=== PATIENT | female | born 1950 | race Caucasian/White ===

== ENCOUNTER 2018-04-03 15:47 | Emergency (ER) | payer MEDICARE, OTHER ==
--- NOTE | 2018-04-03 17:32 | ED ---
Recheck HPI - General Chief Complaint: Recheck/Abnormal Lab/Rx Stated Complaint: High BP Time Seen by Provider: 04/03/18 17:04 Source: patient, family, RN notes reviewed, old records reviewed Mode of arrival: wheelchair Limitations: no limitations - History of Present Illness Initial Comments: This is a 67-year-old female the ER for evaluation. Patient has history of high blood pressure with blood pressure medication that she takes, patient's been taking her blood pressure medication as directed but and I will mild headache today and had some abnormal blood pressure readings at home. Patient comes ER for evaluation. Patient herself denies any complaints no headache no chest pain or shortness of breath no abdominal pain. MD Complaint: abnormal lab (Elevated blood pressure) -: hour(s) Symptoms Since Prior Visit: no new symptoms Associated Symptoms: none - Related Data Home Medications Medication Instructions Recorded Confirmed Amantadine HCl [Symmetrel] 100 mg PO TID 04/03/18 04/03/18 Atorvastatin [Lipitor] 20 mg PO DAILY 04/03/18 04/03/18 Carbidopa-Levodopa 25-100 mg 3 tab PO QID 04/03/18 [Sinemet 25-100] Docusate [Colace] 100 mg PO DAILY PRN 04/03/18 04/03/18 Losartan/Hydrochlorothiazide 1 tab PO DAILY 04/03/18 04/03/18 [Losartan-Hctz 100-25 mg Tab] Multivit-Min/Iron/Folic/Lutein 1 tab PO DAILY 04/03/18 04/03/18 [Centrum Silver Women Tablet] Allergies Allergy/AdvReac Type Severity Reaction Status Date / Time No Known Allergies Allergy Verified 04/03/18 17:32 Review of Systems ROS Statement: Those systems with pertinent positive or pertinent negative responses have been documented in the HPI. ROS Other: All systems not noted in ROS Statement are negative. Past Medical History Past Medical History: Hyperlipidemia, Hypertension History of Any Multi-Drug Resistant Organisms: None Reported Past Surgical History: Section, Orthopedic Surgery Additional Past Surgical History / Comment(s): rt foot Past Psychological History: No Psychological Hx Reported Smoking Status: Never smoker Past Alcohol Use History: None Reported Past Drug Use History: None Reported General Exam Limitations: no limitations General appearance: alert, in no apparent distress Head exam: Present: atraumatic, normocephalic, normal inspection Eye exam: Present: normal appearance, PERRL, EOMI. Absent: scleral icterus, conjunctival injection, periorbital swelling ENT exam: Present: normal exam, mucous membranes moist Neck exam: Present: normal inspection. Absent: tenderness, meningismus, lymphadenopathy Respiratory exam: Present: normal lung sounds bilaterally. Absent: respiratory distress, wheezes, rales, rhonchi, stridor Cardiovascular Exam: Present: regular rate, normal rhythm, normal heart sounds. Absent: systolic murmur, diastolic murmur, rubs, gallop, clicks GI/Abdominal exam: Present: soft, normal bowel sounds. Absent: distended, tenderness, guarding, rebound, rigid Extremities exam: Present: normal inspection, full ROM, normal capillary refill. Absent: tenderness, pedal edema, joint swelling, calf tenderness Back exam: Present: normal inspection Neurological exam: Present: alert, oriented X3, CN II-XII intact Psychiatric exam: Present: normal affect, normal mood Skin exam: Present: warm, dry, intact, normal color. Absent: rash Course Vital Signs 04/03/18 04/03/18 16:01 17:40 Temperature 98.7 F Pulse Rate 88 86 Respiratory 20 16 Rate Blood Pressure 136/75 148/74 O2 Sat by Pulse 98 97 Oximetry - Reevaluation(s) Reevaluation #1: 04/03/18 20:15 Medical record is reviewed Reevaluation #2: 04/03/18 20:15 Spoke with patient's family at length given advice regarding blood pressure control and evaluation. Questions are answered Medical Decision Making - Medical Decision Making 67 female the ER for evaluation of elevated blood pressure, patient's blood pressure is normal throughout ER stay. Patient is occasional headaches but CT negative, labwork is normal patient will discharge home - Lab Data Result diagrams: 04/03/18 19:18 04/03/18 19:18 Lab Results 04/03/18 04/03/18 04/03/18 Range/Units 19:18 19:18 19:18 WBC 7.4 (3.8-10.6) k/uL RBC 4.74 (3.80-5.40) m/uL Hgb 15.8 (11.4-16.0) gm/dL Hct 49.3 H (34.0-46.0) % MCV 104.0 H (80.0-100.0) fL MCH 33.3 (25.0-35.0) pg MCHC 32.0 (31.0-37.0) g/dL RDW 13.4 (11.5-15.5) % Plt Count 334 (150-450) k/uL Neutrophils % 56 % Lymphocytes % 32 % Monocytes % 7 % Eosinophils % 2 % Basophils % 1 % Neutrophils # 4.2 (1.3-7.7) k/uL Lymphocytes # 2.4 (1.0-4.8) k/uL Monocytes # 0.5 (0-1.0) k/uL Eosinophils # 0.1 (0-0.7) k/uL Basophils # 0.1 (0-0.2) k/uL Macrocytosis Slight Sodium 138 (137-145) mmol/L Potassium 3.9 (3.5-5.1) mmol/L Chloride 102 (98-107) mmol/L Carbon Dioxide 27 (22-30) mmol/L Anion Gap 9 mmol/L BUN 17 (7-17) mg/dL Creatinine 0.66 (0.52-1.04) mg/dL Est GFR (CKD-EPI)AfAm >90 (>60 ml/min/1.73 sqM) Est GFR (CKD-EPI)NonAf >90 (>60 ml/min/1.73 sqM) Glucose 98 (74-99) mg/dL Calcium 10.3 H (8.4-10.2) mg/dL Phosphorus 4.4 (2.5-4.5) mg/dL Magnesium 2.3 (1.6-2.3) mg/dL Total Bilirubin 0.4 (0.2-1.3) mg/dL AST 30 (14-36) U/L ALT 21 (9-52) U/L Alkaline Phosphatase 74 (38-126) U/L Total Creatine Kinase 88 (30-135) U/L CK-MB (CK-2) 0.7 (0.0-2.4) ng/mL CK-MB (CK-2) Rel Index 0.8 Troponin I <0.012 (0.000-0.034) ng/mL Total Protein 8.2 (6.3-8.2) g/dL Albumin 4.3 (3.5-5.0) g/dL - Radiology Data Radiology results: report reviewed (CT brain is negative for acute disease), image reviewed Disposition Clinical Impression: Hypertension Disposition: HOME SELF-CARE Condition: Good Instructions: Hypertension (ED) Is patient prescribed a controlled substance at d/c from ED?: No Referrals: Juanita Allen MD [Primary Care Provider] - 1-2 days
[2018-04-03 17:40] VITALS: RESP 16
[2018-04-03 19:42] LABS: Basophils # (A) 0.1 k/uL (0-0.2); Basophils % (A) 1 %; Eosinophils # (A) 0.1 k/uL (0-0.7); Eosinophils % (A) 2 %; HCT 49.3 % (34.0-46.0); HGB 15.8 gm/dL (11.4-16.0); Lymphocytes # (A) 2.4 k/uL (1.0-4.8); Lymphocytes % (A) 32 %; MCH 33.3 pg (25.0-35.0); Macrocytosis Slight; Mean Platelet Volume 6.4; Monocytes # (A) 0.5 k/uL (0-1.0); Monocytes % (A) 7 %; Neutrophils # (A) 4.2 k/uL (1.3-7.7); Neutrophils % (A) 56 %; Platelet Count 334 k/uL (150-450); RBC 4.74 m/uL (3.80-5.40); RDW 13.4 % (11.5-15.5); WBC 7.4 k/uL (3.8-10.6)
[2018-04-03 19:54] LABS: Creatine Kinase 88 U/L (30-135)
[2018-04-03 19:56] LABS: ALT 21 U/L (9-52); AST 30 U/L (14-36); Albumin 4.3 g/dL (3.5-5.0); Alkaline Phosphatase 74 U/L (38-126); Anion Gap 9 mmol/L; Blood Urea Nitrogen 17 mg/dL (7-17); Calcium 10.3 mg/dL (8.4-10.2); Carbon Dioxide 27 mmol/L (22-30); Chloride 102 mmol/L (98-107); Glucose 98 mg/dL (74-99); Magnesium 2.3 mg/dL (1.6-2.3); Phosphorus 4.4 mg/dL (2.5-4.5); Potassium 3.9 mmol/L (3.5-5.1); Sodium 138 mmol/L (137-145); Total Bilirubin 0.4 mg/dL (0.2-1.3); Total Protein 8.2 g/dL (6.3-8.2)
[2018-04-03 20:06] LABS: Creatine Kinase MB 0.7 ng/mL (0.0-2.4); Troponin I <0.012 ng/mL (0.000-0.034)
--- NOTE | 2018-04-03 20:17 | CT ---
EXAMINATION TYPE: CT brain wo con DATE OF EXAM: 04/03/2018 COMPARISON: None HISTORY: Hypertension and headache. CT DLP: 980.3 mGycm Automated exposure control for dose reduction was used. FINDINGS: Ventricles have normal size. There is no mass effect nor midline shift. There is no sign of intracran ial hemorrhage. The calvarium is intact. There is symmetric thalamic calcification. IMPRESSION: NO ACUTE INTRACRANIAL ABNORMALITY.
[2018-04-03 20:50] VITALS: BP 112/82; PULSE 84; TEMP 98.5
== END 2018-04-03 20:50 | disposition home or self-care (01) ==
LOC: EC 15:47
DX: I10 Essential (primary) hypertension (principal); R79.9 Abnormal finding of blood chemistry, unspecified; R51 Headache; E78.5 Hyperlipidemia, unspecified; Z79.899 Other long term (current) drug therapy
CPT/HCPCS: 36415; 70450; 80053; 82550; 82553; 83735; 84100; 84484; 85025; 99284

== ENCOUNTER → 2018-04-30 | Outpatient (CLI) | payer MEDICARE ==
--- NOTE | 2018-04-30 16:35 | XR ---
Right knee HISTORY: Right knee pain 3 views of the right knee Slight lateral subluxation at the knee joint is present, there is tricompartmental marginal spurring, joint space loss is greatest in the medial and patellofemoral compartments with subchondral sclerosi s medially. Suprapatellar increased density is compatible joint effusion. Question some chondrocalcin osis. IMPRESSION: Consider crystal deposition arthropathy, osteoarthritis.
== END | disposition home or self-care (01) ==
LOC: RADXRMAIN 15:31
PROVIDERS: ATTEND Internal Medicine
DX: M25.561 Pain in right knee (principal)

== ENCOUNTER → 2018-05-06 | Outpatient (CLI) | payer MEDICARE ==
--- NOTE | 2018-05-06 12:20 | FL ---
Modified barium swallow. HISTORY: Dysphagia. Modified barium swallow was performed with the department of speech pathology. The patient was prese nted with various consistencies of barium. There is no evidence for aspiration or penetration. Full report is to follow from the department of speech pathology. Impression: Normal study.
== END | disposition home or self-care (01) ==
LOC: RADFLMAIN 11:26
PROVIDERS: ATTEND Internal Medicine
DX: R13.10 Dysphagia, unspecified (principal); G20 Parkinson's disease; G23.1 Progressive supranuclear ophthalmoplegia [Steele-Richardson-Olszewski]
CPT/HCPCS: 74230

== ENCOUNTER 2018-06-07 07:53 | Emergency (ER) | payer MEDICARE ==
--- NOTE | 2018-06-07 09:14 | ED ---
General Adult HPI - General Chief complaint: Fall Stated complaint: Fell/head injury Source: patient, family Mode of arrival: wheelchair Limitations: no limitations - History of Present Illness Initial comments: Dictation was produced using [employer] dictation software. please excuse any grammatical, word or spelling errors. Chief Complaint: 67-year-old female presents with fall History of Present Illness: Patient is a 67-year-old female presents after fall. Patient has a past medical history of supranuclear palsy. She was diagnosed with this several months ago. Patient allegedly has episodes where if she turns abruptly she falls due to her neurologic disease. Patient states she fell today. She did fall and hit her head on the right parietal area. Medications were reviewed. Patient does not have any ambulatory orders for blood thinners. Patient denies any neurologic deficits. Family is allegedly working on mother being placed in a nursing facility versus the living facility. The ROS documented in this emergency department record has been reviewed and confirmed by me. Those systems with pertinent positive or negative responses have been documented in the HPI. All other systems are other negative and/or noncontributory. - Related Data Home Medications Medication Instructions Recorded Confirmed Amantadine HCl [Symmetrel] 100 mg PO DAILY 04/03/18 06/07/18 Atorvastatin [Lipitor] 20 mg PO DAILY 04/03/18 06/07/18 Carbidopa-Levodopa 25-100 mg 4 tab PO TID 04/03/18 06/07/18 [Sinemet 25-100] Losartan/Hydrochlorothiazide 1 tab PO DAILY 04/03/18 06/07/18 [Losartan-Hctz 100-25 mg Tab] Multivit-Min/Iron/Folic/Lutein 1 tab PO DAILY 04/03/18 06/07/18 [Centrum Silver Women Tablet] Aspirin EC [Ecotrin Low Dose] 81 mg PO DAILY 04/15/18 06/07/18 Meclizine [Antivert] 12.5 mg PO TID PRN 06/07/18 06/07/18 Nystatin 100,000 Unit/ml Susp 5 ml PO QID 06/07/18 06/07/18 [Mycostatin Oral Susp] Polyethylene Glycol 3350 [Miralax] 17 gm PO DAILY 06/07/18 06/07/18 Sennosides [Senna] 8.6 mg PO DAILY PRN 06/07/18 06/07/18 Allergies Allergy/AdvReac Type Severity Reaction Status Date / Time No Known Allergies Allergy Verified 06/07/18 10:34 Review of Systems ROS Statement: Those systems with pertinent positive or pertinent negative responses have been documented in the HPI. ROS Other: All systems not noted in ROS Statement are negative. Past Medical History Past Medical History: Hyperlipidemia, Hypertension History of Any Multi-Drug Resistant Organisms: None Reported Past Surgical History: Section, Orthopedic Surgery Additional Past Surgical History / Comment(s): rt foot Past Psychological History: No Psychological Hx Reported Smoking Status: Never smoker Past Alcohol Use History: None Reported Past Drug Use History: None Reported General Exam - General Exam Comments Initial Comments: PHYSICAL EXAM: General Impression: Alert and oriented x3, not in acute distress HEENT: Normocephalic atraumatic, extra-ocular movements intact, pupils equal and reactive to light bilaterally, mucous membranes moist. Cardiovascular: Heart regular rate and rhythm, S1&S2 audible, no murmurs, rubs or gallops Chest: Lungs clear to auscultation bilaterally, no rhonchi, no wheeze, no rales Abdomen: Bowel sounds present, abdomen soft, non-tender, non-distended, no organomegaly Musculoskeletal: Pulses present and equal in all extremities, no peripheral edema Motor: Power 5/5 bilaterally, no focal deficits noted Neurological: CN II-XII grossly intact, no focal motor or sensory deficits noted Skin: Intact with no visualized rashes Psych: Normal affect and mood Limitations: no limitations Course Vital Signs 06/07/18 07:57 Temperature 98.2 F Pulse Rate 103 H Respiratory 20 Rate Blood Pressure 155/83 O2 Sat by Pulse 98 Oximetry Medical Decision Making - Medical Decision Making ED course: 67-year-old female presents after fall. She has a past medical history of supranuclear palsy where she will have episodes of falling after abrupt head movements. Vital signs upon arrival shows heart rate of 103, rest of vital signs within acceptable limits.Laboratory evaluation obtained. CBC, coag panel, metabolic panel unremarkable. Head and C-spine was obtained. CT was read as possible fullness within the sella. No other intracranial injuries noted. CT C-spine is unremarkable. Discussed patient case with Dr. Conn on- call for neurology recommend patient be transferred for neurosurgical evaluation. There is some concern that this radiologic finding represents traumatic. Patient to be transferred via ambulance to [facility]. - Lab Data Result diagrams: 06/07/18 09:24 06/07/18 09:24 Lab Results 06/07/18 06/07/18 06/07/18 Range/Units 09:23 09:24 09:24 WBC 6.0 (3.8-10.6) k/uL RBC 4.81 (3.80-5.40) m/uL Hgb 16.1 H (11.4-16.0) gm/dL Hct 48.9 H (34.0-46.0) % MCV 101.5 H (80.0-100.0) fL MCH 33.4 (25.0-35.0) pg MCHC 32.9 (31.0-37.0) g/dL RDW 13.0 (11.5-15.5) % Plt Count 252 (150-450) k/uL Neutrophils % 61 % Lymphocytes % 20 % Monocytes % 12 % Eosinophils % 2 % Basophils % 1 % Neutrophils # 3.7 (1.3-7.7) k/uL Lymphocytes # 1.2 (1.0-4.8) k/uL Monocytes # 0.7 (0-1.0) k/uL Eosinophils # 0.1 (0-0.7) k/uL Basophils # 0.1 (0-0.2) k/uL Macrocytosis Slight PT 10.0 (9.0-12.0) sec INR 0.9 (<1.2) Sodium 140 (137-145) mmol/L Potassium 3.9 (3.5-5.1) mmol/L Chloride 101 (98-107) mmol/L Carbon Dioxide 30 (22-30) mmol/L Anion Gap 9 mmol/L BUN 12 (7-17) mg/dL Creatinine 0.72 (0.52-1.04) mg/dL Est GFR (CKD-EPI)AfAm >90 (>60 ml/min/1.73 sqM) Est GFR (CKD-EPI)NonAf 87 (>60 ml/min/1.73 sqM) Glucose 93 (74-99) mg/dL Calcium 9.8 (8.4-10.2) mg/dL Disposition Clinical Impression: Fall Disposition: OTHER INSTITUTION NOT DEFINED Condition: Critical Referrals: Juanita Allen MD [Primary Care Provider] - 1-2 days Time of Disposition: 11:49 - Out of Hospital Transfer - Req. Specs Out of Hospital Transfer - Requested Specifics: Other Emergency Center ([facility] for neurosurgery evaluation)
[2018-06-07 09:38] LABS: Basophils # (A) 0.1 k/uL (0-0.2); Basophils % (A) 1 %; Eosinophils # (A) 0.1 k/uL (0-0.7); Eosinophils % (A) 2 %; HCT 48.9 % (34.0-46.0); HGB 16.1 gm/dL (11.4-16.0); Lymphocytes # (A) 1.2 k/uL (1.0-4.8); Lymphocytes % (A) 20 %; MCH 33.4 pg (25.0-35.0); MCHC 32.9 g/dL (31.0-37.0); MCV 101.5 fL (80.0-100.0); Macrocytosis Slight; Mean Platelet Volume 6.2; Monocytes # (A) 0.7 k/uL (0-1.0); Monocytes % (A) 12 %; Neutrophils # (A) 3.7 k/uL (1.3-7.7); Neutrophils % (A) 61 %; Platelet Count 252 k/uL (150-450); RBC 4.81 m/uL (3.80-5.40)
[2018-06-07 09:46] LABS: Anion Gap 9 mmol/L; Blood Urea Nitrogen 12 mg/dL (7-17); Calcium 9.8 mg/dL (8.4-10.2); Carbon Dioxide 30 mmol/L (22-30); Chloride 101 mmol/L (98-107); Glucose 93 mg/dL (74-99); Potassium 3.9 mmol/L (3.5-5.1); Sodium 140 mmol/L (137-145)
--- NOTE | 2018-06-07 10:14 | CT ---
EXAMINATION TYPE: CT brain val cannon con DATE OF EXAM: 06/07/2018 COMPARISON: 04/15/2018 HISTORY: Fall last evening struck back of head CT DLP: 1206.9 mGycm, Automated exposure control for dose reduction was used. CONTRAST: Patient injected with 0 mL of Isovue 300. CT of the brain is performed utilizing 3 mm thick sections through the posterior fossa and 3 mm thick sections through the remaining calvarium. Study is performed within 24 hours of arrival to the hospital. No abnormal hyperdensity is present to suggest an acute intracranial hemorrhage. No mass lesion is evident. Physiologic basal ganglion calcification is present. No acute infarcts are evident. Ventricles and sulci are appropriate for the patient age. No acute fractures are evident. There is some fullness of the sella. The posterior wall is not well visualized. Consider dedicated MR I of the pituitary the patient is stable for additional evaluation of this region. No obvious pituita ry mass is evident based on these images. Paranasal sinuses and mastoid air cells within the [id number] are clear. IMPRESSIONS: 1. No acute intracranial process. 2. Possible fullness within the sella. MRI with contrast can be performed when the patient is stable for additional evaluation. CT cervical spine. COMPARISON: None CT of the cervical spine is performed in the axial plane at 2 mm thick sections. Reconstructed image s in the coronal, and sagittal plane are reviewed on the computer. No acute fractures are evident. Vertebral body alignment is normal. Disc space narrowing is present, most notably C3-4 C6-7. Vertebral body heights are preserved. No spinal canal stenosis is evident. Spondylosis and minimal endplate spurring is present most notabl y C6-7 no AP spinal canal stenosis present. Mild left foraminal narrowing from uncovertebral joint hypertrophy at C6-7 is present. Bilateral unco vertebral joint hypertrophy is present C5-6 contributing to foraminal narrowing slightly greater on t he right. IMPRESSIONS: 1. Degenerative disc changes cervical spine. 2. No acute osseous abnormality. 3. Uncovertebral joint hypertrophy is lower cervical spine contributing to some foraminal narrowing d iscussed above.
[2018-06-07 10:27] LABS: INR 0.9 (<1.2)
--- NOTE | 2018-06-07 10:45 | XR ---
EXAMINATION TYPE: XR chest 2V DATE OF EXAM: 06/07/2018 COMPARISON: None INDICATION: Fall cough congestion TECHNIQUE: Frontal and lateral views of the chest are obtained. FINDINGS: The heart size is normal. The pulmonary vasculature is normal. The lungs are clear. Some degenerative changes are noted at the bilateral shoulders. IMPRESSION: 1. No acute pulmonary process.
[2018-06-07 12:43] VITALS: BP 124/85; PULSE 104; RESP 18; TEMP 98.7
== END 2018-06-07 13:00 | disposition short-term general hospital (02) ==
LOC: EC 07:53
DX: S09.90XA Unspecified injury of head, initial encounter (principal); G23.1 Progressive supranuclear ophthalmoplegia [Steele-Richardson-Olszewski]; R29.6 Repeated falls; E78.5 Hyperlipidemia, unspecified; I10 Essential (primary) hypertension; Z79.82 Long term (current) use of aspirin; Z79.899 Other long term (current) drug therapy; W19.XXXA Unspecified fall, initial encounter
CPT/HCPCS: 36415; 70450; 71046; 72125; 80048; 85025; 85610; 99285

== ENCOUNTER → 2018-07-10 | Outpatient (CLI) | payer MEDICARE ==
--- NOTE | 2018-07-16 15:12 | MM ---
Reason for exam: additional evaluation requested from prior study. Last mammogram was performed 9 years ago. History: Family history of breast cancer in sister. Physical Findings: Nurse did not find any significant physical abnormalities on exam. MG Diagnostic Mammo w CAD NATASHA Bilateral CC and MLO view(s) were taken. Prior study comparison: May 16, 2016, mammogram, performed at [facility]. March 23, 2015, mammogram, performed at [facility]. There are scattered fibroglandular densities. Stable benign calcifications. There is no discrete abnormality including area of concern. No significant new findings when compared with previous films. These results were verbally communicated with the patient and result sheet given to the patient on 07/10/18. ASSESSMENT: Benign, BI-RAD 2 RECOMMENDATION: Routine screening mammogram of both breasts in 1 year. Manage patient on a clinical basis.
== END | disposition home or self-care (01) ==
LOC: RADMAMWWP 12:53
PROVIDERS: ATTEND Internal Medicine
DX: R92.8 Other abnormal and inconclusive findings on diagnostic imaging of breast (principal)
CPT/HCPCS: 77066

== ENCOUNTER 2019-05-25 16:33 | Emergency (ER) | payer MEDICARE ==
[2019-05-25 16:47] VITALS: BP 126/80; PULSE 74; RESP 16; TEMP 98.3
--- NOTE | 2019-05-25 16:53 | ED ---
Recheck HPI - General Source: patient, family Mode of arrival: wheelchair Limitations: language barrier <Alisson Lin - Last Filed: 05/25/19 20:32> <Mally Valentine - Last Filed: 05/26/19 23:30> - General Chief Complaint: Recheck/Abnormal Lab/Rx Stated Complaint: staple removal (not put in here) Time Seen by Provider: 05/25/19 16:47 - History of Present Illness Initial Comments: 5-year-old female presenting for staple removal. Patient states she did fall approximately 10 days ago. She states that she had 4 ashlyn placed in the right posterior/parietal aspect of scalp. Patient denies any complaints after the fall. She states she had them placed at [facility] however this is closer. Patient remaining ROS (-). (Alisson Lin) - Related Data Home Medications Medication Instructions Recorded Confirmed Amantadine HCl [Symmetrel] 100 mg PO DAILY 04/03/18 06/07/18 Atorvastatin [Lipitor] 20 mg PO DAILY 04/03/18 06/07/18 Carbidopa-Levodopa 25-100 mg 4 tab PO TID 04/03/18 06/07/18 [Sinemet 25-100] Losartan/Hydrochlorothiazide 1 tab PO DAILY 04/03/18 06/07/18 [Losartan-Hctz 100-25 mg Tab] Multivit-Min/Iron/Folic/Lutein 1 tab PO DAILY 04/03/18 06/07/18 [Centrum Silver Women Tablet] Aspirin EC [Ecotrin Low Dose] 81 mg PO DAILY 04/15/18 06/07/18 Meclizine [Antivert] 12.5 mg PO TID PRN 06/07/18 06/07/18 Nystatin 100,000 Unit/ml Susp 5 ml PO QID 06/07/18 06/07/18 [Mycostatin Oral Susp] Polyethylene Glycol 3350 [Miralax] 17 gm PO DAILY 06/07/18 06/07/18 Sennosides [Senna] 8.6 mg PO DAILY PRN 06/07/18 06/07/18 Allergies Allergy/AdvReac Type Severity Reaction Status Date / Time No Known Allergies Allergy Verified 05/25/19 16:45 Review of Systems ROS Other: All systems not noted in ROS Statement are negative. <Alisson Lin - Last Filed: 05/25/19 20:32> ROS Other: All systems not noted in ROS Statement are negative. <Mally Valentine - Last Filed: 05/26/19 23:30> ROS Statement: Those systems with pertinent positive or pertinent negative responses have been documented in the HPI. Past Medical History Past Medical History: Hyperlipidemia, Hypertension History of Any Multi-Drug Resistant Organisms: None Reported Past Surgical History: Section, Orthopedic Surgery Additional Past Surgical History / Comment(s): rt foot Past Psychological History: No Psychological Hx Reported Smoking Status: Never smoker Past Alcohol Use History: None Reported Past Drug Use History: None Reported <RileyFeAlisson L - Last Filed: 05/25/19 20:32> General Exam Limitations: language barrier <ReyAlisson ceballos - Last Filed: 05/25/19 20:32> - General Exam Comments Initial Comments: General: The patient is awake and alert, in no distress, and does not appear acutely ill. Eye: +3 mm pupils are equal, round and reactive to light, extra-ocular movements are intact. No nystagmus. There is normal conjunctiva bilaterally. No signs of icterus. Neurological: A&O x 3. CN II-XII intact grossly, There are no obvious motor or sensory deficits. Coordination appears grossly intact. Speech is normal. Skin: Skin is warm and dry and no rashes. No dehiscence very faint linear scar of the right posterior parietal region [address] with no surrounding erythema Psychiatric: Cooperative, appropriate mood & affect, normal judgment. (Alisson Lin) Course Vital Signs 05/25/19 16:45 Temperature 98.3 F Pulse Rate 74 Respiratory 16 Rate Blood Pressure 126/80 O2 Sat by Pulse 97 Oximetry Medical Decision Making <Alisson Lin - Last Filed: 05/25/19 20:32> <Mally Valentine - Last Filed: 05/26/19 23:30> - Medical Decision Making 68yo presenting for removal. 4 ashlyn removed without complication. No dehiscence wound appears to have healed well no other complaints patient discharge instructions follow up with primary care provider as previously scheduled. Case discussed with Dr. Valentine (Alisson Lin) I was available for consultation in the emergency department. The history and physical exam were done by the midlevel provider. I was consulted for this patients care. I reviewed the case with the midlevel provider and based on their presentation of the patient, I agree with the assessment, medical decision making and plan of care as documented. Chart was dictated using [employer] dictation software. Attempts were made to correct any dictation errors however some typographical errors may persist. (Mally Valentine) Disposition Is patient prescribed a controlled substance at d/c from ED?: No Time of Disposition: 16:52 <Alisson Lin - Last Filed: 05/25/19 20:32> <Mally Valentine - Last Filed: 05/26/19 23:30> Clinical Impression: Encounter for removal of ashlyn Disposition: HOME SELF-CARE Condition: Good Additional Instructions: Please use medication as discussed. Please follow-up with family doctor as scheduled. Please return to emergency room if the symptoms increase or worsen or for any other concerns. Referrals: Juanita Allen MD [Primary Care Provider] - 1-2 days
== END 2019-05-25 16:58 | disposition home or self-care (01) ==
LOC: EC 16:33
DX: Z48.02 Encounter for removal of sutures (principal); E78.5 Hyperlipidemia, unspecified; I10 Essential (primary) hypertension; Z79.82 Long term (current) use of aspirin; Z79.899 Other long term (current) drug therapy
CPT/HCPCS: 99281

== ENCOUNTER → 2019-07-22 | Outpatient (CLI) | payer MEDICARE ==
[2019-07-22 14:02] VITALS: BP 164/85; PULSE 66; RESP 18
--- NOTE | 2019-07-22 14:39 | P.PAINCN ---
History of Present Illness - Reason for Consult Consult date: 07/22/19 - History of Present Illness This is an initial consultation visit for this 69 years old female with a few month history of severe neck pain mainly on the right side, radiated towards the upper part of the shoulder area, the pain started after she fell on her back, patient had history of supranuclear palsy and she had episode of falling, she reported that the pain in her cervical spine is constant severe localized mainly on the right side, she denies any motor deficit, she denies any numbness or tingling in her upper extremities, she denies any fever or night sweats, and she described that the intensity of the pain is 8/10,( patient is very poor historian ) Past Medical History Past Medical History: Hyperlipidemia, Hypertension History of Any Multi-Drug Resistant Organisms: None Reported Past Surgical History: Section, Orthopedic Surgery Additional Past Surgical History / Comment(s): rt foot/progressive supranuclear palsy Past Anesthesia/Blood Transfusion Reactions: No Reported Reaction Past Psychological History: No Psychological Hx Reported Smoking Status: Never smoker Past Alcohol Use History: None Reported Past Drug Use History: None Reported - Past Family History Father Family Medical History: CVA/TIA Sister(s) Additional Family Medical History / Comment(s): anersym Brother(s) Family Medical History: CVA/TIA Medications and Allergies Home Medications Medication Instructions Recorded Confirmed Type Amantadine HCl [Symmetrel] 100 mg PO DAILY 04/03/18 07/22/19 History Atorvastatin [Lipitor] 20 mg PO DAILY 04/03/18 07/22/19 History Carbidopa-Levodopa 25-100 mg 4 tab PO TID 04/03/18 07/22/19 History [Sinemet 25-100] Losartan/Hydrochlorothiazide 1 tab PO DAILY 04/03/18 07/22/19 History [Losartan-Hctz 100-25 mg Tab] Multivit-Min/Iron/Folic/Lutein 1 tab PO DAILY 04/03/18 07/22/19 History [Centrum Silver Women Tablet] Aspirin EC [Ecotrin Low Dose] 81 mg PO DAILY 04/15/18 07/22/19 History Nystatin 100,000 Unit/ml Susp 5 ml PO QID 06/07/18 07/22/19 History [Mycostatin Oral Susp] Polyethylene Glycol 3350 [Miralax] 17 gm PO DAILY 06/07/18 07/22/19 History Acetaminophen Tab [Tylenol] 650 mg PO BID 07/22/19 07/22/19 History Allergies Allergy/AdvReac Type Severity Reaction Status Date / Time No Known Allergies Allergy Verified 07/22/19 13:52 Physical Exam Vitals: Vital Signs Pulse Resp BP Pulse Ox 07/22/19 13:55 66 18 164/85 99 Intake and Output 07/21/19 07/22/19 07/22/19 22:59 06:59 14:59 Other: Weight 70.76 kg REVIEW OF ORGAN SYSTEMS: CONSTITUTIONAL: No fevers or chills. No recent weight loss. EYES: denies troubles with vision. HEENT: No difficulties with hearing. No nosebleeds. No difficulty swallowing. RESPIRATORY: Denies any troubles with breathing or dyspnea on exertion. CARDIOVASCULAR: Denies any chest pain, palpitations, or recent heart attacks. GASTROINTESTINAL: Denies fatty food intolerance. Has change in bowel habits and gas bloat. GENITOURINARY: Denies any blood in urine. Has increased urinary frequency. NEUROLOGICAL: Supranuclear palsy. No seizure disorders or headaches. MUSCULOSKELETAL: Has back pain. SKIN:no skin cancer. No rash. PSYCHIATRIC: Denies current depression or suicidal thoughts. ENDOCRINE: Denies current thyroid disorders. Denies any blood sugar glucose intolerance. HEME/LYMPHATIC: Denies any lumps and bumps around the neck. History of deep venous thrombosis. ALLERGY/IMMUNOLOGY: No immunoglobulin therapy. No immune deficiencies. BREAST: Denies current breast lumps, pain or nipple discharge. Physical Examinations : Constitutiona : Cooperative , not in acute distress . HEENT : nech : supple , no Lymphadenopathy , normal thyroid size . : eyes no ptosis , no icterus, no photophobia . : ENT normal of hearing , normal oropharynx , no Thrush . Respiratory : Chest clear to auscultations Bilaterally , no wheezing , no Rhonchi . Cardiovascula : regular rate and rhythem , S1 , S2 , no S3 , no S4. Gastrointestina : abdomen soft no tenderness , bowel sounds , no organomegally . Genitourinary : Defferred . neurologic : Cranial nerve II to XII intact , no focal neurological deffecit . psychatric : alert , oriented X 3 , appropriate affect , intact judgment and insight . Lymphatic : no Lymphadenopathy . musculoskeltal : Cervical Spine motor stregnth in the deltoid and biceps, normal right side , normal Left side motor stregnth biceps and the wrist extensors normal right side ,normal left side . motor stregnth in the triceps muscle . normal Right side , normal Left side deep tendon reflexes= normal at the biceps , normal at Brachioradialis , normal at triceps. cervical facet loading test: Positive on the right side Spurling test= positive on the right side Neck distraction test= positive on the right side. Yolanda sign= positive on the right side Lumber spine moter stegnth lower extremities ,thigh and legs 5/5 Right side , 5/5 Left side Results Comments: Computed tomography scan of the cervical spine= cervical degenerative disc disease, and uncovertebral joint hypertrophy Assessment and Plan Plan: Assessment and plan= cervical degenerative disc disease. Cervical spondylosis with cervical facet arthropathy without myelopathy Patient will be good candidate for cervical epidural steroid injections under fluoroscopy guidance C7-T1 Right paramedian approach. x2 If she continued to have severe neck pain after cervical epidural steroid injection then we will consider doing right side diagnostic medial branch block cervical area at C3, C4 , C5, C6, Time with Patient: Greater than 30 PQRS Measure Charge Sheet Measure #130: Documentation of Current Meds in Medical Chart: Patient's medications documented in chart Measure #226: Tobacco Use: Screen & Cessation Intervention: Pt not a tobacco user Measure #111: Pneumonia Vaccination: Pneumococcal vaccine NOT administered or previously given Measure #47: Advance Care Plan: Advance care planning discussed & documented, pt chose/unable to give Measure #408: Opioid Therapy Follow-up Evaluation: Patient had NO f/u eval minimum every 3 months during opioid therapy Measure #317: Preventitive Care & Scrn High Bld Press & F/U: Pre-hypertensive or hypertensive BP documented, pt will f/u with PCP Measure #128: Body Mass Index (BMI) Screening & Follow-up: BMI documented ABOVE normal parameters - f/u documented Measure #131: Pain Assessment & Follow-up: Pain positive & plan documented, Follow-up scheduled Measure #431: Unhealthy Alcohol Use Preventative Care & Scrn: Patient not identified as an unhealthy alcohol user PQRS Narrative: Smoking Status Never smoker Blood Pressure 164/85 Pain Intensity [Right Neck] 5 Scale Used Numeric (1 - 10) Hx Alcohol Use (MH) No Home Medications: Ambulatory Orders Amantadine HCl [Symmetrel] 100 mg PO DAILY 04/03/18 Atorvastatin [Lipitor] 20 mg PO DAILY 04/03/18 Carbidopa-Levodopa 25-100 mg [Sinemet 25-100] 4 tab PO TID 04/03/18 Losartan/Hydrochlorothiazide [Losartan-Hctz 100-25 mg Tab] 1 tab PO DAILY 04/03/18 Multivit-Min/Iron/Folic/Lutein [Centrum Silver Women Tablet] 1 tab PO DAILY 04/03/18 Aspirin EC [Ecotrin Low Dose] 81 mg PO DAILY 04/15/18 Nystatin 100,000 Unit/ml Susp [Mycostatin Oral Susp] 5 ml PO QID 06/07/18 Polyethylene Glycol 3350 [Miralax] 17 gm PO DAILY 06/07/18 Acetaminophen Tab [Tylenol] 650 mg PO BID 07/22/19
== END | disposition home or self-care (01) ==
LOC: PNWHC3 13:13
PROVIDERS: ATTEND Specialist
DX: M50.30 Other cervical disc degeneration, unspecified cervical region (principal); M47.812 Spondylosis without myelopathy or radiculopathy, cervical region; M46.92 Unspecified inflammatory spondylopathy, cervical region; I10 Essential (primary) hypertension; E78.5 Hyperlipidemia, unspecified; Z79.82 Long term (current) use of aspirin; Z79.899 Other long term (current) drug therapy
CPT/HCPCS: 99211

== ENCOUNTER 2019-10-22 13:37 | Inpatient (IN) | payer MEDICARE ==
--- NOTE | 2019-10-22 14:10 | ED ---
General Adult HPI <Adeel Quintana - Last Filed: 10/22/19 15:44> - General Source: patient, family Mode of arrival: wheelchair Limitations: physical limitation <Janna Rosario - Last Filed: 10/22/19 19:27> - General Chief complaint: Neuro Symptoms/Deficit Stated complaint: fall Time Seen by Provider: 10/22/19 13:49 - History of Present Illness Initial comments: Patient is a 69-year-old female, with history of supernuclear palsy, presenting to the emergency Department after having multiple falls in the last few weeks as well as complaints of dizziness. Patient's daughter is here with her now and is contributing to history. Daughter states that patient has been using a walker until about 2 weeks ago and now uses a wheelchair mostly at times. Patient currently lives with her son who does work and is not around 24/7. Patient states she is falling at least 10-20 times in the last few weeks and her legs feel weak. She states the last time was 4 days ago landing on her forearms. She states she has very mild pain in her right elbow as well as her left hip. She denies any previous surgeries of hips. She sees a neurologist at [facility] in [place]. She denies any recent fever, chills, dysuria, chest pain, short of breath, abdominal pain, nausea, vomiting. Patient's daughter states they're treating her diagnosis with Parkinson's medications. Daughter states that patient has been dizzy throughout this diagnosis but feels like it has increased. Daughter also has significant concerns with patient stating at home and is thinking about trying to get in to her rehab. There are no other complaints at this time. (Janna Rosario) - Related Data Home Medications Medication Instructions Recorded Confirmed Amantadine HCl [Symmetrel] 100 mg PO TID@0800,1500,2200 04/03/18 10/22/19 Atorvastatin [Lipitor] 20 mg PO HS@219904/03/18 10/22/19 Carbidopa-Levodopa 25-100 mg 3 tab PO TID@0800,1500,2200 04/03/18 10/22/19 [Sinemet 25-100] Losartan/Hydrochlorothiazide 1 tab PO DAILY@0800 04/03/18 10/22/19 [Losartan-Hctz 100-25 mg Tab] Aspirin EC [Ecotrin Low Dose] 81 mg PO DAILY@0800 04/15/18 10/22/19 Polyethylene Glycol 3350 [Miralax] 17 gm PO DAILY@0800 06/07/18 10/22/19 Melatonin 5 mg PO HS PRN 10/22/19 10/22/19 Metoprolol Tartrate [Lopressor] 50 mg PO BID@0800,1800 10/22/19 10/22/19 Allergies Allergy/AdvReac Type Severity Reaction Status Date / Time No Known Allergies Allergy Verified 10/22/19 16:46 Review of Systems ROS Other: All systems not noted in ROS Statement are negative. <Adeel Quintana - Last Filed: 10/22/19 15:44> ROS Other: All systems not noted in ROS Statement are negative. <Janna Rosario - Last Filed: 10/22/19 19:27> ROS Statement: Those systems with pertinent positive or pertinent negative responses have been documented in the HPI. Past Medical History Past Medical History: Hyperlipidemia, Hypertension Additional Past Medical History / Comment(s): supranuclear palsy History of Any Multi-Drug Resistant Organisms: None Reported Past Surgical History: Section, Orthopedic Surgery Additional Past Surgical History / Comment(s): rt foot/progressive supranuclear palsy Past Anesthesia/Blood Transfusion Reactions: No Reported Reaction Past Psychological History: No Psychological Hx Reported Smoking Status: Never smoker Past Alcohol Use History: None Reported Past Drug Use History: None Reported - Past Family History Father Family Medical History: CVA/TIA Sister(s) Additional Family Medical History / Comment(s): anersym Brother(s) Family Medical History: CVA/TIA <Janna Rosario - Last Filed: 10/22/19 19:27> General Exam Limitations: physical limitation <Janna Rosario - Last Filed: 10/22/19 19:27> - General Exam Comments Initial Comments: GENERAL: Well-appearing, well-nourished and in no acute distress. HEAD: Atraumatic, normocephalic. No hematoma. EYES: Pupils equal round and reactive to light, extraocular movements intact, sclera anicteric, conjunctiva are normal. ENT: TMs normal, nares patent, oropharynx clear without exudates. Moist mucous membranes. NECK: Normal range of motion, supple without lymphadenopathy or JVD. LUNGS: Breath sounds clear to auscultation bilaterally and equal. No wheezes rales or rhonchi. HEART: Regular rate and rhythm without murmurs, rubs or gallops. ABDOMEN: Soft, nontender, normoactive bowel sounds. No guarding, no rebound. No masses appreciated. : Deferred EXTREMITIES: Patient has full range of motion of bilateral lower extremities as well as upper extremities. Normal range of motion, no pitting or edema. No clubbing or cyanosis. Strength is 5 out of 5 in upper and lower extremities, sensation is equal and bilateral. NEUROLOGICAL: Cranial nerves II through XII grossly intact. Speech is difficult to understand which patient's daughter states is more so than normal. PSYCH: Normal mood, normal affect. SKIN: Warm, Dry, normal turgor, no rashes or lesions noted. (Janna Rosario) Course <Adeel Quintana - Last Filed: 10/22/19 15:44> Vital Signs 10/22/19 10/22/19 10/22/19 13:41 14:57 16:12 Temperature 98.0 F Pulse Rate 64 65 70 Respiratory 18 18 18 Rate Blood Pressure 147/81 121/72 121/72 O2 Sat by Pulse 98 97 99 Oximetry 10/22/19 16:56 Temperature 98.3 F Pulse Rate 70 Respiratory 18 Rate Blood Pressure 134/65 O2 Sat by Pulse 100 Oximetry - Reevaluation(s) Reevaluation #1: 10/22/19 15:44 PA supervision: I proceeded [id number] evaluation the patient she did present with complaints of multiple falls. He does have a neurological history. The case is discussed with patient family as well as with Dr. Allen. Patient will be admitted she will require placement. (Adeel Quintana) EKG Findings - EKG Comments: EKG Findings:: Normal sinus rhythm, no signs of acute ischemia. Ventricular rate 69, UT interval 198, QTC 435. <Janna Rosario - Last Filed: 10/22/19 19:27> Medical Decision Making - Lab Data Result diagrams: 10/22/19 14:11 10/22/19 14:11 <Adeel Quintana - Last Filed: 10/22/19 15:44> - Lab Data Result diagrams: 10/22/19 14:11 10/22/19 14:11 <Janna Rosario - Last Filed: 10/22/19 19:27> - Medical Decision Making Patient is a 69-year-old female with history of supranuclear palsy presenting with increased dizziness and multiple falls. CT of the brain shows no acute abnormalities, lab work shows no acute findings. Urine is normal. Patient's daughter has significant concerns for patient's multiple falls and is worried about patient living with her son. She is asking for possible placement into a rehab facility. Patient's daughter also stated that patient admitted to her, just now, that she is having hallucinations of talking to her mother and sibling. I did speak with Dr. Allen who agrees to admit patient with a neuro consult and possible placement. Patient is agreement with this plan of care. Case discussed with Dr. Quintana. (Janna Rosario) - Lab Data Lab Results 10/22/19 10/22/19 10/22/19 Range/Units 14:11 14:11 14:11 WBC 8.9 (3.8-10.6) k/uL RBC 5.07 (3.80-5.40) m/uL Hgb 17.3 H (11.4-16.0) gm/dL Hct 52.9 H (34.0-46.0) % MCV 104.2 H (80.0-100.0) fL MCH 34.0 (25.0-35.0) pg MCHC 32.6 (31.0-37.0) g/dL RDW 12.6 (11.5-15.5) % Plt Count 302 (150-450) k/uL Neutrophils % 59 % Lymphocytes % 28 % Monocytes % 8 % Eosinophils % 2 % Basophils % 1 % Neutrophils # 5.2 (1.3-7.7) k/uL Lymphocytes # 2.4 (1.0-4.8) k/uL Monocytes # 0.7 (0-1.0) k/uL Eosinophils # 0.2 (0-0.7) k/uL Basophils # 0.1 (0-0.2) k/uL Macrocytosis Slight Sodium 132 L (137-145) mmol/L Potassium 3.8 (3.5-5.1) mmol/L Chloride 95 L (98-107) mmol/L Carbon Dioxide 25 (22-30) mmol/L Anion Gap 12 mmol/L BUN 20 H (7-17) mg/dL Creatinine 0.69 (0.52-1.04) mg/dL Est GFR (CKD-EPI)AfAm >90 (>60 ml/min/1.73 sqM) Est GFR (CKD-EPI)NonAf 88 (>60 ml/min/1.73 sqM) Glucose 107 H (74-99) mg/dL Calcium 10.0 (8.4-10.2) mg/dL Magnesium 2.3 (1.6-2.3) mg/dL Total Bilirubin 0.6 (0.2-1.3) mg/dL AST 41 H (14-36) U/L ALT 16 (4-34) U/L Alkaline Phosphatase 110 (38-126) U/L Total Protein 8.8 H (6.3-8.2) g/dL Albumin 4.8 (3.5-5.0) g/dL Urine Color Yellow Urine Appearance Clear (Clear) Urine pH 6.5 (5.0-8.0) Ur Specific [place] 1.014 (1.001-1.035) Urine Protein Negative (Negative) Urine Glucose (UA) Negative (Negative) Urine Ketones Negative (Negative) Urine Blood Negative (Negative) Urine Nitrite Negative (Negative) Urine Bilirubin Negative (Negative) Urine Urobilinogen <2.0 (<2.0) mg/dL Ur Leukocyte Esterase Small H (Negative) Urine RBC 1 (0-5) /hpf Urine WBC 7 H (0-5) /hpf Disposition <Adeel Quintana - Last Filed: 10/22/19 15:44> Is patient prescribed a controlled substance at d/c from ED?: No Decision Date: 10/22/19 Decision Time: 15:42 <Janna Rosario - Last Filed: 10/22/19 19:27> Clinical Impression: Multiple falls, Dizziness, Weakness, Supranuclear palsy Disposition: ADMITTED IP TO THIS HOSP Condition: Stable
[2019-10-22 14:24] LABS: Basophils # (A) 0.1 k/uL (0-0.2); Basophils % (A) 1 %; Eosinophils # (A) 0.2 k/uL (0-0.7); Eosinophils % (A) 2 %; HCT 52.9 % (34.0-46.0); HGB 17.3 gm/dL (11.4-16.0); Lymphocytes # (A) 2.4 k/uL (1.0-4.8); Lymphocytes % (A) 28 %; MCHC 32.6 g/dL (31.0-37.0); MCV 104.2 fL (80.0-100.0); Macrocytosis Slight; Mean Platelet Volume 7.9; Monocytes # (A) 0.7 k/uL (0-1.0); Monocytes % (A) 8 %; Neutrophils # (A) 5.2 k/uL (1.3-7.7); Neutrophils % (A) 59 %; Platelet Count 302 k/uL (150-450); RBC 5.07 m/uL (3.80-5.40); RDW 12.6 % (11.5-15.5); WBC 8.9 k/uL (3.8-10.6)
[2019-10-22 14:25] LABS: Appearance,Urine Clear (Clear); Bilirubin,Urine Negative (Negative); Blood,Urine Negative (Negative); Color,Urine Yellow; Glucose,Urine (UA) Negative (Negative); Ketones,Urine Negative (Negative); Leukocyte Esterase,Urine Small (Negative); Nitrite,Urine Negative (Negative); PH, Urine 6.5 (5.0-8.0); Protein,Urine Negative (Negative); RBC,Urine 1 /hpf (0-5); Specific Gravity,Urine 1.014 (1.001-1.035); Urobilinogen,Urine <2.0 mg/dL (<2.0); WBC,Urine 7 /hpf (0-5)
[2019-10-22 14:31] LABS: ALT 16 U/L (4-34); AST 41 U/L (14-36); African American GFR (CKD) >90 (>60 ml/min/1.73 sqM); Albumin 4.8 g/dL (3.5-5.0); Alkaline Phosphatase 110 U/L (38-126); Anion Gap 12 mmol/L; Blood Urea Nitrogen 20 mg/dL (7-17); Carbon Dioxide 25 mmol/L (22-30); Chloride 95 mmol/L (98-107); Glucose 107 mg/dL (74-99); Magnesium 2.3 mg/dL (1.6-2.3); Non-African American GFR(CKD) 88 (>60 ml/min/1.73 sqM); Potassium 3.8 mmol/L (3.5-5.1); Sodium 132 mmol/L (137-145); Total Bilirubin 0.6 mg/dL (0.2-1.3); Total Protein 8.8 g/dL (6.3-8.2)
--- NOTE | 2019-10-22 14:53 | CT ---
EXAMINATION TYPE: CT brain wo con DATE OF EXAM: 10/22/2019 HISTORY: Dizzy, multiple falls. CT DLP: 1098.4 mGycm. Automated Exposure Control for Dose Reduction was Utilized. TECHNIQUE: CT scan of the head is performed without contrast. COMPARISON: CT brain June 07, 2018. FINDINGS: There is no acute intracranial hemorrhage or midline shift identified. There is diffuse v entricular and sulcal prominence consistent with diffuse age-related cerebral atrophy. There is low- attenuation in the periventricular white matter consistent with chronic small vessel ischemic change. Prominent basal ganglia calcifications redemonstrated. The globes are intact and the visualized sinu ses are clear. IMPRESSION: No acute intracranial hemorrhage or midline shift. There is mild diffuse age-related ce rebral atrophy and mild to moderate chronic small vessel ischemic change redemonstrated. No signific ant change from prior.
[2019-10-22] MEDS ORDERED: NALOXONE 0.4 MG/ML 1 ML VIAL IV PRN (15:35)
[2019-10-22] MEDS ORDERED: MELATONIN 5 MG TABLET PO PRN (20:24)
[2019-10-22] MEDS: ATORVASTATIN 20 MG TAB PO SCH (21:25)
[2019-10-22] MEDS: CARBIDOPA-LEVODOPA 25-100 MG 1 EACH TAB PO SCH (21:25)
[2019-10-22] MEDS: AMANTADINE HCL 100 MG CAP PO SCH (21:25)
[2019-10-23] MEDS: AMANTADINE HCL 100 MG CAP PO SCH ×2 (07:54→21:43)
[2019-10-23] MEDS: CARBIDOPA-LEVODOPA 25-100 MG 1 EACH TAB PO SCH ×3 (07:55→21:44)
[2019-10-23] MEDS: POLYETHYLENE GLYCOL 3350 17 GM POWD.PACK PO SCH (07:55)
[2019-10-23] MEDS: ASPIRIN 81 MG PO SCH (07:55)
[2019-10-23] MEDS: METOPROLOL TARTRATE 50 MG TAB PO SCH ×2 (07:55→18:06)
[2019-10-23] MEDS ORDERED: LOSARTAN-HCTZ 50-12.5 MG 1 EACH TAB PO SCH (08:00)
--- NOTE | 2019-10-23 09:56 | P.HPIM ---
History of Present Illness H&P Date: 10/23/19 Patient is a 69-year-old female patient of Dr. Allen with past medical history of supernuclear palsy with resulting Parkinson-like symptoms. She follows with a neurologist at [facility] with her last visit and October 2018 with no medication changes. Patient also has past medical history of hypertension hyperlipidemia and sinus tachycardia. Patient is currently residing at home with her son but she is having multiple falls which are becoming more frequent. Patient utilizes a walker for ambulation but symptoms have worsened to the point that now she is utilizing a wheelchair some of the time. She had a fall yesterday and hit her head and was unable to get up without significant dif ficulty. She has had somewhere between 10 and 20 falls in the past few weeks due to lower extremity weakness. She complains of neck pain. Patient states that she is eating and drinking adequately. Patient has chronic dizziness from the supranuclear palsy which is getting worse. Patient came into [facility] emergency center for evaluation. Initial blood pressure 147/81, heart rate 64, afebrile, pulse ox 90% on room air. EKG sinus rhythm. WBC 8.9, hemoglobin 17.3, platelet count 302. Sodium 132, potassium 3.8, chloride 95, CO2 25, BUN 20 creatinine 0.69, blood sugar 1 07. Urinalysis showed small amount of leukoesterase and 7 WBCs. CAT scan of the brain showed no acute intracranial hemorrhage or midline shift. Mild diffuse age-related atrophy and chronic small vessel ischemic change. Orthostatics completed this morning are positive and patient will be started on IV fluids, consult with Dr. Wolfe regarding adjustment of her Parkinson medications. We will start Rocephin for UTI. personnel monitor will be added as patient has history of sinus tachycardia. Review of Systems Constitutional: Reports fatigue, Reports weakness, Denies anorexia, Denies chills, Denies fever, Denies lethargy, Denies malaise, Denies poor appetite, Denies weight loss Eyes: denies blurred vision, denies pain Ears, nose, mouth and throat: Reports vertigo, Denies dysphagia, Denies headache, Denies nasal congestion, Denies nasal discharge, Denies sore throat Cardiovascular: Denies chest pain, Denies decreased exercise tolerance, Denies dyspnea on exertion, Denies leg edema, Denies shortness of breath, Denies syncope Respiratory: Denies cough, Denies cough with sputum, Denies dyspnea, Denies hemoptysis, Denies home oxygen, Denies respiratory infections, Denies wheezing Gastrointestinal: Denies abdominal pain, Denies diarrhea, Denies loss of appetite, Denies nausea, Denies vomiting Genitourinary: Denies dysuria, Denies hematuria Menstruation: Reports postmenopausal Musculoskeletal: Reports frequent falls, Reports gait dysfunction, Reports muscle weakness, Denies myalgias Integumentary: Denies pruritus, Denies rash, Denies wounds Neurological: Reports balance difficulties, Reports gait dysfunction, Reports head injury, Reports vertigo, Reports weakness, Denies change in mentation, Denies change in speech, Denies confusion, Denies headaches, Denies seizures, Denies syncope Psychiatric: Denies anxiety, Denies depression Endocrine: Denies fatigue, Denies weight change Past Medical History Past Medical History: Hyperlipidemia, Hypertension Additional Past Medical History / Comment(s): supranuclear palsy History of Any Multi-Drug Resistant Organisms: None Reported Past Surgical History: Section, Orthopedic Surgery Additional Past Surgical History / Comment(s): rt foot/progressive supranuclear palsy Past Anesthesia/Blood Transfusion Reactions: No Reported Reaction Smoking Status: Never smoker Additional Past Alcohol Use History / Comment(s): Patient is a lifelong nonsmoker. No illicit drug use, marijuana use, alcohol use. Patient is but lives separately from her as he was not able to take care of her. Patient currently living with her son. She has a walker and wheelchair. - Past Family History Father Family Medical History: CVA/TIA Additional Family Medical History / Comment(s): Father at age 53 with history of brain aneurysm and myocardial infarction. Sister(s) Additional Family Medical History / Comment(s): Patient has one sister that at age 44 from a brain aneurysm. She has a second sister living in [place] with no major medical problems. Brother(s) Family Medical History: CVA/TIA Additional Family Medical History / Comment(s): The patient has 1 brother that at age 53 from a brain aneurysm and one brother living with no major medical problems. Mother Additional Family Medical History / Comment(s): Mother at age 82 with diabetes complications. Daughter(s) Additional Family Medical History / Comment(s): Patient has 6 daughters and 4 sons with no major medical problems. Medications and Allergies Home Medications Medication Instructions Recorded Confirmed Type Amantadine HCl [Symmetrel] 100 mg PO TID@0800,1500,2200 04/03/18 10/22/19 History Atorvastatin [Lipitor] 20 mg PO HS@2200 04/03/18 10/22/19 History Carbidopa-Levodopa 25-100 mg 3 tab PO TID@0800,1500,2200 04/03/18 10/22/19 History [Sinemet 25-100] Losartan/Hydrochlorothiazide 1 tab PO DAILY@0800 04/03/18 10/22/19 History [Losartan-Hctz 100-25 mg Tab] Aspirin EC [Ecotrin Low Dose] 81 mg PO DAILY@0800 04/15/18 10/22/19 History Polyethylene Glycol 3350 [Miralax] 17 gm PO DAILY@0800 06/07/18 10/22/19 History Melatonin 5 mg PO HS PRN 10/22/19 10/22/19 History Metoprolol Tartrate [Lopressor] 50 mg PO BID@0800,1800 10/22/19 10/22/19 History Allergies Allergy/AdvReac Type Severity Reaction Status Date / Time No Known Allergies Allergy Verified 10/22/19 16:46 Physical Exam Vitals: Vital Signs Temp Pulse Pulse Resp BP BP BP 10/23/19 05:00 97.7 F 68 12 121/72 126/63 10/22/19 20:59 115/72 116/70 10/22/19 20:29 98.3 F 89 16 10/22/19 18:36 98.1 F 69 19 10/22/19 16:56 98.3 F 70 18 134/65 10/22/19 16:12 70 18 121/72 10/22/19 14:57 65 18 121/72 10/22/19 13:41 98.0 F 64 18 147/81 BP BP Pulse Ox 10/23/19 05:00 93/63 96 10/22/19 20:59 109/70 96 10/22/19 20:29 113/70 95 10/22/19 18:36 141/72 98 10/22/19 16:56 100 10/22/19 16:12 99 10/22/19 14:57 97 10/22/19 13:41 98 Intake and Output 10/22/19 10/23/19 10/23/19 22:59 06:59 14:59 Intake Total 540 Balance 540 Intake: Oral 540 Other: Voiding Method Bedside Commode # Voids 2 1 Weight 72.575 kg Gen: This is a 69-year-old female. The patient is being assisted back into bed from the commode. Tremors noted. Patient does not appear to be any acute distress. HEENT: Head is atraumatic, normocephalic. Pupils equal, round. Sclerae is anicteric. NECK: Supple. No JVD. No lymphadenopathy. No thyromegaly. LUNGS: Clear to auscultation. No wheezes or rhonchi. No intercostal retractions. HEART: Regular rate and rhythm. No murmur. Tachycardic. ABDOMEN: Soft. Bowel sounds are present. No masses. No tenderness. EXTREMITIES: No pedal edema. No calf tenderness. NEUROLOGICAL: Patient is awake, alert and oriented x3. Cranial nerves 2 through 12 are grossly intact. Generalized weakness. Speech is rapid and patient appears to be somewhat impulsive. Results CBC & Chem 7: 10/23/19 11:05 10/22/19 14:11 Labs: Abnormal Lab Results - Last 24 Hours (Table) 10/22/19 10/22/19 10/22/19 Range/Units 14:11 14:11 14:11 Hgb 17.3 H (11.4-16.0) gm/dL Hct 52.9 H (34.0-46.0) % MCV 104.2 H (80.0-100.0) fL Sodium 132 L (137-145) mmol/L Chloride 95 L (98-107) mmol/L BUN 20 H (7-17) mg/dL Glucose 107 H (74-99) mg/dL AST 41 H (14-36) U/L Total Protein 8.8 H (6.3-8.2) g/dL Ur Leukocyte Esterase Small H (Negative) Urine WBC 7 H (0-5) /hpf Thrombosis Risk Factor Assmnt - DVT/VTE Prophylaxis DVT/VTE Prophylaxis: Pharmacologic Prophylaxis ordered - Choose All That Apply Any of the Below Risk Factors Present?: Yes Each Factor Represents 1 point: Medical pt on bed rest Other Risk Factors: Yes Each Risk Factor Represents 2 Points: Age 61-74 years, Patient confined to bed Other congenital or acquired thrombophilia - If yes, enter type in comment: No Thrombosis Risk Factor Assessment Total Risk Factor Score: 5 Thrombosis Risk Factor Assessment Level: High Risk Assessment and Plan Plan: 1. Multiple frequent falls along with dizziness secondary to orthostatic hypotension and dehydration and possible component of autonomic dysfunction. Patient will be started on midodrine 10 mg 3 times daily, IV fluids 75 mL per hour, monitor tech. Hold losartan and hydrochlorothiazide. 2. Supranuclear palsy with worsening of symptoms with increased weakness and dizziness. Continue Sinemet 00678 tabs 3 times daily and amantadine 100 mg 3 times daily. Neurology consult. 3. Hypertension. Continue to hold losartan and hydrochlorothiazide. Continue Lopressor 50 mg twice daily. 4. Hyperlipidemia. Continue atorvastatin 20 mg at bedtime. 5. Generalized debility with multiple falls. Consult with PT and OT. 6. GI prophylaxis. Protonix daily. 7. DVT prophylaxis. Heparin subcu. 8. [COVID-19 testing is in process. Patient will be admitted to the hospital for a minimum of 2 night stay. Discharge plan: Subacute rehab on Saturday. PT and OT evaluations. Impression and plan of care have been directed as dictated by the signing physician. Tiffanie Agudelo nurse practitioner acting as scribe for signing physician.
[2019-10-23] MEDS: SODIUM CHLORIDE 0.9% 1,000 ML IV SCH (10:49)
--- NOTE | 2019-10-23 11:01 | P.CNNES ---
History of Present Illness Consult date: 10/22/19 Requesting physician: Janna Rosario Reason for Consult: Dizziness, multiple falls, supranuclear palsy, ?adjust medications. History of Present Illness: Patient is a 69-year-old female, who states that she was diagnosed with progressive supranuclear palsy by Dr. Jesus Horton in 2017. Patient states that at that time she had some surgery on the right foot, as her right toe would stick up all the time. She was recommended bed rest, and she stayed mostly in the recliner for 3 months. After she started walking, she noticed problems with balance and easily falls. Last time patient was seen by Dr. Jesus Horton was in October 2018. She was recommended to return to his office if there is any changes in her condition. Patient is currently on amantadine 100 mg 3 times a day and Sinemet 25/100, 3 tablets 3 times a day. Patient states that her balance is getting worse, and she is falling down. The symptoms have gotten worse in the last 1-2 weeks. She feels her knees gives out. Patient lives with one of her s ons. She has 4 sons. Patient had a computed tomography scan of head, which revealed no acute intra cranial hemorrhage or midline shift. There is mild diffuse age-related cerebral atrophy and [id number] chronic small vessel ischemic changes redemonstrated. On my review, there is evidence of bilateral basal ganglia calcifications. There is somewhat smallness of the midbrain, typically seen with PSP. EKG shows normal sinus rhythm. Patient had a 2-D echo on 04/23/2018, which revealed normal left ventricle systolic function with EF 60-65%. Normal left atrial size. No other abnormalities. Patient's blood tests from 10/22/2019 shows normal WBC with hemoglobin is 17.3. Elevated MCV 104.2. PT/PTT normal. CMP normal although AST is mildly elevated 41. UA is negative. Patient denies tremors. Patient denies tobacco or alcohol use. Review of Systems Patient has some back problems. She has received epidural injections in the past. Denies problems with double vision, hoarseness to throw dysphagia. Denies chest pain shortness of breath wheezing or cough. All other review of systems unremarkable. No fever or chills. Past Medical History Past Medical History: Hyperlipidemia, Hypertension Additional Past Medical History / Comment(s): supranuclear palsy History of Any Multi-Drug Resistant Organisms: None Reported Past Surgical History: Section, Orthopedic Surgery Additional Past Surgical History / Comment(s): rt foot/progressive supranuclear palsy Past Anesthesia/Blood Transfusion Reactions: No Reported Reaction Smoking Status: Never smoker - Past Family History Father Family Medical History: CVA/TIA Sister(s) Additional Family Medical History / Comment(s): anersym Brother(s) Family Medical History: CVA/TIA Mother Additional Family Medical History / Comment(s): Mother at age 82 with diabetes complications. Daughter(s) Additional Family Medical History / Comment(s): Patient has 6 daughters and 4 sons with no major medical problems. Medications and Allergies Home Medications Medication Instructions Recorded Confirmed Type Amantadine HCl [Symmetrel] 100 mg PO TID@0800,1500,2200 04/03/18 10/22/19 H istory Atorvastatin [Lipitor] 20 mg PO HS@2200 04/03/18 10/22/19 History Carbidopa-Levodopa 25-100 mg 3 tab PO TID@0800,1500,2200 04/03/18 10/22/19 History [Sinemet 25-100] Losartan/Hydrochlorothiazide 1 tab PO DAILY@0800 04/03/18 10/22/19 History [Losartan-Hctz 100-25 mg Tab] Aspirin EC [Ecotrin Low Dose] 81 mg PO DAILY@0800 04/15/18 10/22/19 History Polyethylene Glycol 3350 [Miralax] 17 gm PO DAILY@0800 06/07/18 10/22/19 History Melatonin 5 mg PO HS PRN 10/22/19 10/22/19 History Metoprolol Tartrate [Lopressor] 50 mg PO BID@0800,1800 10/22/19 10/22/19 History Allergies Allergy/AdvReac Type Severity Reaction Status Date / Time No Known Allergies Allergy Verified 10/22/19 16:46 Physical Examination - Vital Signs Vital Signs: Vital Signs Temp Pulse Pulse Resp BP BP BP 10/22/19 20:59 115/72 116/70 10/22/19 20:29 98.3 F 89 16 10/22/19 18:36 98.1 F 69 19 10/22/19 16:56 98.3 F 70 18 134/65 10/22/19 16:12 70 18 121/72 10/22/19 14:57 65 18 121/72 10/22/19 13:41 98.0 F 64 18 147/81 BP BP Pulse Ox 10/22/19 20:59 109/70 96 10/22/19 20:29 113/70 95 10/22/19 18:36 141/72 98 10/22/19 16:56 100 10/22/19 16:12 99 10/22/19 14:57 97 10/22/19 13:41 98 Intake and Output 10/22/19 10/22/19 10/22/19 06:59 14:59 22:59 Other: Weight 72.575 kg 72.575 kg On examination patient is an elderly [place] lady, very pleasant, in no acute distress. Patient is alert and awake and fully oriented. Patient speaks with some stuttering, and some slurring, sometimes difficult to understand. On cranial nerve examination. Pupils are round and reactive to light. Visual ratliff are full on confrontation. Extraocular muscles intact with no nystagmus. Patient does have fairly adequate up and down gaze. Face is symmetric and tongue protrudes to midline. Palatal elevation and sensation normal hearing and shoulder shrug normal. On muscle strength testing there is no pronator drift and the strength is normal in arms and legs distally and proximally. Reflexes are 1+ and plantars are downgoing bilaterally. Sensory touch is equal. No ataxia for [id number] or [id number] testing. Tone is very mildly increased, bulk of muscles normal. Gait deferred. No obvious bruit, S1 and S2 audible. Chest is clear, abdomen soft nontender. Results - Laboratory Findings CBC and BMP: 10/23/19 11:05 10/22/19 14:11 Abnormal Lab Findings: Abnormal Labs 10/22/19 10/22/19 10/22/19 14:11 14:11 14:11 Hgb 17.3 H Hct 52.9 H MCV 104.2 H Sodium 132 L Chloride 95 L BUN 20 H Glucose 107 H AST 41 H Total Protein 8.8 H Ur Leukocyte Esterase Small H Urine WBC 7 H Assessment and Plan Assessment: * 69-year-old female with a diagnosis of Progressive supranuclear palsy, came with increased frequency of falls. Patient examination is relatively nonfocal. Exact cause of frequent falls uncertain, although could be from progression of the underlying disease (PSP). * Macrocytosis, rule out B12, folate deficiency Plan: * We will check B12, folate and MMA to rule out B12 deficiency. * Patient is on fairly high dose of Sinemet 25/100, 3 tablets 3 times a day. Also on amantadine 100 mg 3 times a day. PSP usually is refractory to antiparkinsonian medications. I would cut back on amantadine to 100 mg twice a day, which is a standard dose for Parkinson's disease. Although she is on fairly high dose of Sinemet, but I did not see any obvious dyskinesias. * PT OT, evaluate gait. * I would recommend patient to follow-up with her movement disorder specialist. Patient has not seen Dr. Jesus Ellison for last 1 year.
[2019-10-23 11:20] LABS: HCT 44.6 % (34.0-46.0); HGB 15.1 gm/dL (11.4-16.0); MCH 34.6 pg (25.0-35.0); MCHC 33.9 g/dL (31.0-37.0); MCV 101.9 fL (80.0-100.0); Mean Platelet Volume 6.8; Platelet Count 303 k/uL (150-450); RBC 4.38 m/uL (3.80-5.40); RDW 12.6 % (11.5-15.5); WBC 6.8 k/uL (3.8-10.6)
[2019-10-23] MEDS: MIDODRINE 5 MG TAB PO SCH ×2 (12:40→18:06)
--- NOTE | 2019-10-23 15:48 | P.PN ---
Subjective Progress Note Date: 10/23/19 Patient denies any changes in her condition. Laying comfortably in the bed, having lunch. Objective - Vital Signs Vital signs: Vital Signs Temp 98.4 F 10/23/19 12:17 Pulse 66 10/23/19 12:17 Resp 18 10/23/19 12:17 BP 114/70 10/23/19 12:17 Pulse Ox 97 10/23/19 12:17 Intake & Output 10/22/19 10/23/19 10/23/19 18:59 06:59 18:59 Intake Total 540 1086 Balance 540 1086 Weight 72.575 kg 72.575 kg Intake: Intake, IV Titration 250 Amount Sodium Chloride 0.9% 1, 150 000 ml @ 75 mls/hr IV . [id number] JENN Rx#:[id number] cefTRIAXone 1 gm In 100 Sodium Chloride 0.9% 50 ml @ 100 mls/hr IVPB Q24HR JENN Rx#:[id number] Oral 540 836 Other: Voiding Method Bedside Commode Bedside Commode # Voids 1 1 # Bowel Movements 1 - Exam Patient's speech continues to be slightly slurred, stuttering as usual although slightly better than yesterday. Muscle strength is normal. Tone is mildly increased. No significant bradykinesia, no tremors observed. No dyskinesias. I had patient walk today. Patient required significant amount of help from me to get up from the bed. Patient held onto the walker. Her feet almost appeared to be glued on the ground. Very unsteady off balance. Patient is even worse stepping back. Patient was placed back on the bed. She had difficulty scooting herself up towards the head end. - Labs CBC & Chem 7: 10/23/19 11:05 10/22/19 14:11 Labs: Abnormal Lab Results - Last 24 Hours (Table) 10/23/19 Range/Units 11:05 MCV 101.9 H (80.0-100.0) fL Assessment and Plan Assessment: * Progressive supranuclear palsy, came with increased frequency of falls. Exact cause of frequent falls uncertain, although could be from progression of the underlying disease (PSP). * Macrocytosis, rule out B12, folate deficiency Plan: * Await B12, folate and MMA to rule out B12 deficiency. * Patient is on fairly high dose of Sinemet 25/100, 3 tablets 3 times a day. Also on amantadine 100 mg 3 times a day. PSP usually is refractory to antiparkinsonian medications. I would cut back on amantadine to 100 mg twice a day, which is a standard dose for Parkinson's disease. Although she is on fairly high dose of Sinemet, but I did not see any obvious dyskinesias. * PT OT, evaluate gait. * I would recommend patient to follow-up with her movement disorder specialist. Patient has not seen Dr. Jesus Ellison for last 1 year. PSP is usually very refractory to medical management.
[2019-10-23 16:28] LABS: Folate, Serum 22.6 ng/mL
[2019-10-23 20:07] LABS: Glucose,Whole Blood 126 mg/dL (75-99)
[2019-10-23] MEDS: ATORVASTATIN 20 MG TAB PO SCH (21:44)
[2019-10-23] MEDS: HEPARIN SODIUM,PORCINE 5,000 UNIT/ML 1 ML VIAL SQ SCH (21:44)
[2019-10-24] MEDS: SODIUM CHLORIDE 0.9% 1,000 ML IV SCH ×2 (05:25→13:17)
[2019-10-24 07:14] LABS: Glucose,Whole Blood 92 mg/dL (75-99)
[2019-10-24] MEDS: ASPIRIN 81 MG PO SCH (07:51)
[2019-10-24] MEDS: METOPROLOL TARTRATE 50 MG TAB PO SCH ×2 (07:51→18:00)
[2019-10-24] MEDS: CARBIDOPA-LEVODOPA 25-100 MG 1 EACH TAB PO SCH ×3 (07:51→20:18)
[2019-10-24] MEDS: MIDODRINE 5 MG TAB PO SCH ×3 (07:51→16:15)
[2019-10-24] MEDS: POLYETHYLENE GLYCOL 3350 17 GM POWD.PACK PO SCH (07:52)
[2019-10-24] MEDS: AMANTADINE HCL 100 MG CAP PO SCH ×2 (07:52→20:19)
[2019-10-24] MEDS: PANTOPRAZOLE 40 MG TABLET PO SCH (07:52)
[2019-10-24] MEDS: HEPARIN SODIUM,PORCINE 5,000 UNIT/ML 1 ML VIAL SQ SCH ×2 (07:52→20:19)
--- NOTE | 2019-10-24 10:23 | P.PN ---
Subjective Progress Note Date: 10/24/19 Patient is a 69-year-old female patient of Dr. Allen with past medical history of supernuclear palsy with resulting Parkinson-like symptoms. She follows with a neurologist at [facility] with her last visit and October 2018 with no medication changes. Patient also has past medical history of hypertension hyperlipidemia and sinus tachycardia. Patient is currently residing at home with her son but she is having multiple falls which are becoming more frequent. Patient utilizes a walker for ambulation but symptoms have worsened to the point that now she is utilizing a wheelchair some of the time. She had a fall yesterday and hit her head and was unable to get up without significant difficulty. She has had somewhere between 10 and 20 falls in the past few weeks due to lower extremity weakness. She complains of neck pain. Patient states that she is eating and drinking adequately. Patient has chronic dizziness from the supranuclear palsy which is getting worse. Patient came into [facility] emergency center for evaluation. Initial blood pressure 147/81, heart rate 64, afebrile, pulse ox 90% on room air. EKG sinus rhythm. WBC 8.9, hemoglobin 17.3, platelet count 302. Sodium 132, potassium 3.8, chloride 95, CO2 25, BUN 20 creatinine 0.69, blood sugar 107. Urinalysis showed small amount of leukoesterase and 7 WBCs. CAT scan of the brain showed no acute intracranial hemorrhage or midline shift. Mild diffuse age-related atrophy and chronic small vessel ischemic change. Orthostatics completed this morning are positive and patient will be started on IV fluids, consult with Dr. Wolfe regarding adjustment of her Parkinson medications. We will start Rocephin for UTI. manager access will be added as patient has history of sinus tachycardia. 10/24/2019: Patient sitting in chair by bedside. Without any complaints or concerns at this time. Patient was evaluated by neurology with recommendations for PSP. Blood pressure 108/56, heart rate 61, respirations 24, pulse ox 96% on room air. Patient continues to have left-sided weakness denies any syncope. Discussed possible rehab on Saturday. Discussed with patient PSP and the effects on memory and coordination Review of Systems Constitutional: Reports fatigue, Reports weakness, Denies anorexia, Denies chills, Denies fever, Denies lethargy, Denies malaise, Denies poor appetite, Denies weight loss Eyes: denies blurred vision, denies pain Ears, nose, mouth and throat: Reports vertigo, Denies dysphagia, Denies headache, Denies nasal congestion, Denies nasal discharge, Denies sore throat Cardiovascular: Denies chest pain, Denies decreased exercise tolerance, Denies dyspnea on exertion, Denies leg edema, Denies shortness of breath, Denies syncope Respiratory: Denies cough, Denies cough with sputum, Denies dyspnea, Denies hemoptysis, Denies home oxygen, Denies respiratory infections, Denies wheezing Gastrointestinal: Denies abdominal pain, Denies diarrhea, Denies loss of appetite, Denies nausea, Denies vomiting Genitourinary: Denies dysuria, Denies hematuria Menstruation: Reports postmenopausal Musculoskeletal: Reports frequent falls, Reports gait dysfunction, Reports muscle weakness, Denies myalgias Integumentary: Denies pruritus, Denies rash, Denies wounds Neurological: Reports balance difficulties, Reports gait dysfunction, Reports head injury, Reports vertigo, Reports weakness, Denies change in mentation, Denies change in speech, Denies confusion, Denies headaches, Denies seizures, Denies syncope Psychiatric: Denies anxiety, Denies depression Endocrine: Denies fatigue, Denies weight change Objective - Vital Signs Vital signs: Vital Signs Temp 97.7 F 10/24/19 06:28 Pulse 67 10/24/19 08:00 Resp 24 10/24/19 06:28 BP 108/56 10/24/19 06:28 Pulse Ox 96 10/24/19 06:28 Intake & Output 10/23/19 10/24/19 10/24/19 18:59 06:59 18:59 Intake Total 1382 825 Balance 1382 825 Intake: Intake, IV Titration 250 825 Amount Sodium Chloride 0.9% 1, 150 825 000 ml @ 75 mls/hr IV . [id number] [facility] Rx#:[id number] cefTRIAXone 1 gm In 100 Sodium Chloride 0.9% 50 ml @ 100 mls/hr IVPB Q24HR [facility] Rx#:[id number] Oral 1132 Other: Voiding Method Bedside Commode Bedside Commode Bedside Commode # Voids 1 1 # Bowel Movements 1 1 - Exam Gen: This is a 69-year-old female. Sitting at the side of the bed. Tremors noted. Patient does not appear to be any acute distress. HEENT: Head is atraumatic, normocephalic. Pupils equal, round. Sclerae is ani cteric. NECK: Supple. No JVD. No lymphadenopathy. No thyromegaly. LUNGS: Clear to auscultation. No wheezes or rhonchi. No intercostal retractions. HEART: Regular rate and rhythm. No murmur. Tachycardic. ABDOMEN: Soft. Bowel sounds are present. No masses. No tenderness. EXTREMITIES: No pedal edema. No calf tenderness. NEUROLOGICAL: Patient is awake, alert and oriented x3. Cranial nerves 2 through 12 are grossly intact. Generalized weakness notably more on left than right. Speech is rapid and patient appears to be somewhat impulsive. - Labs CBC & Chem 7: 10/23/19 11:05 10/22/19 14:11 Labs: Abnormal Lab Results - Last 24 Hours (Table) 10/23/19 10/23/19 10/23/19 Range/Units 11:05 11: 20:06 MCV 101.9 H (80.0-100.0) fL POC Glucose (mg/dL) 126 H (75-99) mg/dL Vitamin B12 1070.0 H (200.0-944.0) pg/mL Assessment and Plan Plan: 1. Multiple frequent falls along with dizziness secondary to orthostatic hypotension and dehydration and possible component of autonomic dysfunction. Continue midodrine 10 mg 3 times daily, IV fluids 75 mL per hour, escalator attendant. Hold losartan and hydrochlorothiazide. 2. Supranuclear palsy with worsening of symptoms with increased weakness and dizziness. Continue Sinemet 41226 tabs 3 times daily and change amantadine 100 mg 2 twice a day. Neurology consult appreciated awaiting B12 folate and MMA to rule out B12 deficiency. 3. Hypertension. Continue to hold losartan and hydrochlorothiazide. Continue Lopressor 50 mg twice daily. 4. Hyperlipidemia. Continue atorvastatin 20 mg at bedtime. 5. Generalized debility with multiple falls. Consult with PT and OT. 6. GI prophylaxis. Protonix daily. 7. DVT prophylaxis. Heparin subcu. 8. [COVID-19 testing is in process. Patient will be admitted to the hospital for a minimum of 2 night stay. Discharge plan: Subacute rehab on Saturday. PT and OT evaluations. Impression and plan of care have been directed as dictated by the signing p dane. Sol Arcos nurse practitioner acting as scribe for signing physician.
[2019-10-24 17:26] LABS: Glucose,Whole Blood 109 mg/dL (75-99)
[2019-10-24 19:58] LABS: Glucose,Whole Blood 119 mg/dL (75-99)
[2019-10-24] MEDS: ATORVASTATIN 20 MG TAB PO SCH (20:18)
[2019-10-25] MEDS: SODIUM CHLORIDE 0.9% 1,000 ML IV SCH (05:44)
[2019-10-25 07:05] LABS: Glucose,Whole Blood 94 mg/dL (75-99)
[2019-10-25] MEDS: MIDODRINE 5 MG TAB PO SCH ×3 (07:30→16:05)
[2019-10-25] MEDS: HEPARIN SODIUM,PORCINE 5,000 UNIT/ML 1 ML VIAL SQ SCH ×2 (07:30→21:39)
[2019-10-25] MEDS: CARBIDOPA-LEVODOPA 25-100 MG 1 EACH TAB PO SCH ×3 (07:30→21:39)
[2019-10-25] MEDS: METOPROLOL TARTRATE 50 MG TAB PO SCH ×2 (07:30→17:22)
[2019-10-25] MEDS: POLYETHYLENE GLYCOL 3350 17 GM POWD.PACK PO SCH (07:30)
[2019-10-25] MEDS: AMANTADINE HCL 100 MG CAP PO SCH ×2 (07:31→21:39)
[2019-10-25] MEDS: ASPIRIN 81 MG PO SCH (07:31)
[2019-10-25] MEDS: PANTOPRAZOLE 40 MG TABLET PO SCH (07:31)
--- NOTE | 2019-10-25 09:38 | P.PN ---
Subjective Progress Note Date: 10/25/19 Patient is a 69-year-old female patient of Dr. Allen with past medical history of supernuclear palsy with resulting Parkinson-like symptoms. She follows with a neurologist at [facility] with her last visit and October 2018 with no medication changes. Patient also has past medical history of hypertension hyperlipidemia and sinus tachycardia. Patient is currently residing at home with her son but she is having multiple falls which are becoming more frequent. Patient utilizes a walker for ambulation but symptoms have worsened to the point that now she is utilizing a wheelchair some of the time. She had a fall yesterday and hit her head and was unable to get up without significant difficulty. She has had somewhere between 10 and 20 falls in the past few weeks due to lower extremity weakness. She complains of neck pain. Patient states that she is eating and drinking adequately. Patient has chronic dizziness from the supranuclear palsy which is getting worse. Patient came into [facility] emergency center for evaluation. Initial blood pressure 147/81, heart rate 64, afebrile, pulse ox 90% on room air. EKG sinus rhythm. WBC 8.9, hemoglobin 17.3, platelet count 302. Sodium 132, potassium 3.8, chloride 95, CO2 25, BUN 20 creatinine 0.69, blood sugar 107. Urinalysis showed small amount of leukoesterase and 7 WBCs. CAT scan of the brain showed no acute intracranial hemorrhage or midline shift. Mild diffuse age-related atrophy and chronic small vessel ischemic change. Orthostatics completed this morning are positive and patient will be started on IV fluids, consult with Dr. Wolfe regarding adjustment of her Parkinson medications. We will start Rocephin for UTI. splicing supervisor will be added as patient has history of sinus tachycardia. 10/24/2019: Patient sitting in chair by bedside. Without any complaints or concerns at this time. Patient was evaluated by neurology with recommendations for PSP. Blood pressure 108/56, heart rate 61, respirations 24, pulse ox 96% on room air. Patient continues to have left-sided weakness denies any syncope. Discussed possible rehab on Saturday. Discussed with patient PSP and the effects on memory and coordination 10/25/2019: Patient is sitting up in bed without any complaints or concerns expressed at this time. Patient is planning to go to [facility] on Saturday. Patient will need to set up an appointment with her neurologist to discuss further treatment for PSP. Blood pressure 112/57, pulse rate 64, respirations 16, temperature 97.6 oral, pulse ox 97 percent on room air Review of Systems Constitutional: Reports fatigue, Reports weakness, Denies anorexia, Denies chills, Denies fever, Denies lethargy, Denies malaise, Denies poor appetite, Denies weight loss Eyes: denies blurred vision, denies pain Ears, nose, mouth and throat: Reports vertigo, Denies dysphagia, Denies headache, Denies nasal congestion, Denies nasal discharge, Denies sore throat Cardiovascular: Denies chest pain, Denies decreased exercise tolerance, Denies dyspnea on exertion, Denies leg edema, Denies shortness of breath, Denies syncope Respiratory: Denies cough, Denies cough with sputum, Denies dyspnea, Denies hemoptysis, Denies home oxygen, Denies respiratory infections, Denies wheezing Gastrointestinal: Denies abdominal pain, Denies diarrhea, Denies loss of appetite, Denies nausea, Denies vomiting Genitourinary: Denies dysuria, Denies hematuria Menstruation: Reports postmenopausal Musculoskeletal: Reports frequent falls, Reports gait dysfunction, Reports muscle weakness, Denies myalgias Integumentary: Denies pruritus, Denies rash, Denies wounds Neurological: Reports balance difficulties, Reports gait dysfunction, Reports head injury, Reports vertigo, Reports weakness, Denies change in mentation, Denies change in speech, Denies confusion, Denies headaches, Denies seizures, Denies syncope Psychiatric: Denies anxiety, Denies depression Endocrine: Denies fatigue, Denies weight change Objective - Vital Signs Vital signs: Vital Signs Temp 97.6 F 10/25/19 04:59 Pulse 64 10/25/19 04:59 Resp 16 10/25/19 04:59 BP 112/57 10/25/19 04:59 Pulse Ox 97 10/25/19 04:59 Intake & Output 10/24/19 10/25/19 10/25/19 18:59 06:59 18:59 Intake Total 875 590 Balance 875 590 Intake: Intake, IV Titration 875 Amount Sodium Chloride 0.9% 1, 825 000 ml @ 75 mls/hr IV . [id number] [facility] Rx#:[id number] cefTRIAXone 1 gm In 50 Sodium Chloride 0.9% 50 ml @ 100 mls/hr IVPB Q24HR [facility] Rx#:[id number] Oral 590 Other: Voiding Method Bedside Commode Bedside Commode # Voids 1 1 1 # Bowel Movements 2 - Exam Gen: This is a 69-year-old female. Sitting at the side of the bed. Tremors noted. Patient does not appear to be any acute distress. HEENT: Head is atraumatic, normocephalic. Pupils equal, round. Sclerae is anicteric. NECK: Supple. No JVD. No lymphadenopathy. No thyromegaly. LUNGS: Clear to auscultation. No wheezes or rhonchi. No intercostal retractions. HEART: Regular rate and rhythm. No murmur. Tachycardic. ABDOMEN: Soft. Bowel sounds are present. No masses. No tenderness. EXTREMITIES: No pedal edema. No calf tenderness. NEUROLOGICAL: Patient is awake, alert and oriented x3. Cranial nerves 2 through 12 are grossly intact. Generalized weakness notably more on left than right. Speech is rapid and patient appears to be somewhat impulsive. - Labs CBC & Chem 7: 10/23/19 11:05 10/22/19 14:11 Labs: Abnormal Lab Results - Last 24 Hours (Table) 10/24/19 10/24/19 Range/Units 17:20 19:56 POC Glucose (mg/dL) 109 H 119 H (75-99) mg/dL Assessment and Plan Plan: 1. Multiple frequent falls along with dizziness secondary to orthostatic hypotension and dehydration and possible component of autonomic dysfunction. Continue midodrine 10 mg 3 times daily, Hold losartan and hydrochlorothiazide. 2. Supranuclear palsy with worsening of symptoms with increased weakness and dizziness. Continue Sinemet 94491 tabs 3 times daily and change amantadine 100 mg 2 twice a day. Neurology consult appreciated awaiting B12 folate and MMA to rule out B12 deficiency. 3. Hypertension. Continue to hold losartan and hydrochlorothiazide. Continue Lopressor 50 mg twice daily. 4. Hyperlipidemia. Continue atorvastatin 20 mg at bedtime. 5. Generalized debility with multiple falls. Consult with PT and OT. 6. GI prophylaxis. Protonix daily. 7. DVT prophylaxis. Heparin subcu. 8. [COVID-19 testing is in process. Patient will be admitted to the hospital for a minimum of 2 night stay. Discharge plan: Subacute rehab on Saturday. PT and OT evaluations. Impression and plan of care have been directed as dictated by the signing physician. Sol Arcos nurse practitioner acting as scribe for signing physician.
[2019-10-25 11:16] LABS: Glucose,Whole Blood 119 mg/dL (75-99)
[2019-10-25 17:10] LABS: Glucose,Whole Blood 119 mg/dL (75-99)
[2019-10-25 20:08] LABS: Glucose,Whole Blood 132 mg/dL (75-99)
[2019-10-25] MEDS: ATORVASTATIN 20 MG TAB PO SCH (21:39)
[2019-10-26] MEDS: PANTOPRAZOLE 40 MG TABLET PO SCH (07:43)
[2019-10-26] MEDS: MIDODRINE 5 MG TAB PO SCH ×2 (07:43→12:07)
[2019-10-26] MEDS: ASPIRIN 81 MG PO SCH (07:43)
[2019-10-26] MEDS: CARBIDOPA-LEVODOPA 25-100 MG 1 EACH TAB PO SCH (07:43)
[2019-10-26] MEDS: METOPROLOL TARTRATE 50 MG TAB PO SCH (07:43)
[2019-10-26] MEDS: POLYETHYLENE GLYCOL 3350 17 GM POWD.PACK PO SCH (07:44)
[2019-10-26] MEDS: HEPARIN SODIUM,PORCINE 5,000 UNIT/ML 1 ML VIAL SQ SCH (07:44)
[2019-10-26] MEDS: AMANTADINE HCL 100 MG CAP PO SCH (07:44)
[2019-10-26 08:40] LABS: Glucose,Whole Blood 119 mg/dL (75-99)
--- NOTE | 2019-10-26 10:38 | P.DS ---
Providers Date of admission: 10/22/19 15:43 Expected date of discharge: 10/26/19 Attending physician: Juanita Allen MD Consults: 10/22/19 15:35 Consult Physician Stat Consulting Provider: Mely Barnett Consult Reason/Comments: Dizziness, mult falls, supranuclear palsy,?med adj Do you want consulting provider notified?: Yes Primary care physician: Juanita Allen MD Hospital Course: Patient is a 69-year-old female patient of Dr. Allen with past medical history of supernuclear palsy with resulting Parkinson-like symptoms. She follows with a neurologist at [facility] with her last visit and October 2018 with no medication changes. Patient also has past medical history of hypertension hyperlipidemia and sinus tachycardia. Patient is currently residing at home with her son but she is having multiple falls which are becoming more frequent. Patient utilizes a walker for ambulation but symptoms have worsened to the point that now she is utilizing a wheelchair some of the time. She had a fall yesterday and hit her head and was unable to get up without significant difficulty. She has had somewhere between 10 and 20 falls in the past few weeks due to lower extremity weakness. She complains of neck pain. Patient states that she is eating and drinking adequately. Patient has chronic dizziness from the supranuclear palsy which is getting worse. Patient came into [facility] emergency center for evaluation. Initial blood pressure 147/81, heart rate 64, afebrile, pulse ox 90% on room air. EKG sinus rhythm. WBC 8.9, hemoglobin 17.3, platelet count 302. Sodium 132, potassium 3.8, chloride 95, CO2 25, BUN 20 creatinine 0.69, blood sugar 107. Urinalysis showed small amount of leukoesterase and 7 WBCs. CAT scan of the brain showed no acute intracranial hemorrhage or midline shift. Mild diffuse age-related atrophy and chronic small vessel ischemic change. Orthostatics completed this morning are positive and patient will be started on IV fluids, consult with Dr. Wolfe regarding adjustment of her Parkinson medications. We will start Rocephin for UTI. appraiser land will be added as patient has history of sinus tachycardia. 10/24/2019: Patient sitting in chair by bedside. Without any complaints or concerns at this time. Patient was evaluated by neurology with recommendations for PSP. Blood pressure 108/56, heart rate 61, respirations 24, pulse ox 96% on room air. Patient continues to have left-sided weakness denies any syncope. Discussed possible rehab on Saturday. Discussed with patient PSP and the effects on memory and coordination 10/25/2019: Patient is sitting up in bed without any complaints or concerns expressed at this time. Patient is planning to go to [facility] on Saturday. Patient will need to set up an appointment with her neurologist to discuss further treatment for PSP. Blood pressure 112/57, pulse rate 64, respirations 16, temperature 97.6 oral, pulse ox 97 percent on room air 10/25: Patient has been seen by Dr. Khan with recommendations to cut back on amantadine to 100 mg twice a day which we have done.. Patient has no complaints. No falls are noted. Covid 19 testing was not completed on admission will be done now. Patient will be discharged to [facility] for subacute rehab under the care of Dr. Allen. Discharge diagnoses: 1. Multiple frequent falls along with dizziness secondary to orthostatic hypotension and dehydration and possible component of autonomic dysfunction. 2. Supranuclear palsy with worsening of symptoms with increased weakness and dizziness. 3. Hypertension. 4. Hyperlipidemia. 5. Generalized debility with multiple falls. 6. COVID-19 infection not present. Discharge plan: [facility] under the care of Dr. Allen. Impression and plan of care have been directed as dictated by the signing physician. Tiffanie Agudelo nurse practitioner acting as scribe for signing physician. Patient Condition at Discharge: Good Plan - Discharge Summary Discharge Rx Participant: Yes New Discharge Prescriptions: New Midodrine [ProAmatine] 10 mg PO AC-TID #0 tab Amantadine HCl [Symmetrel] 100 mg PO BID cap Continue Atorvastatin [Lipitor] 20 mg PO HS@2200 Carbidopa-Levodopa 25-100 mg [Sinemet 25-100 mg] 3 tab PO TID@0800,1500,2200 Aspirin EC [Ecotrin Low Dose] 81 mg PO DAILY@0800 Polyethylene Glycol 3350 [Miralax] 17 gm PO DAILY@0800 Metoprolol Tartrate [Lopressor] 50 mg PO BID@0800,1800 Melatonin 5 mg PO HS PRN PRN Reason: Insomnia Discontinued Losartan/Hydrochlorothiazide [Losartan-Hctz 100-25 mg Tab] 1 tab PO DAILY@0800 Amantadine HCl [Symmetrel] 100 mg PO TID@0800,1500,2200 Discharge Medication List Atorvastatin [Lipitor] 20 mg PO HS@2200 04/03/18 [History] Carbidopa-Levodopa 25-100 mg [Sinemet 25-100 mg] 3 tab PO TID@0800,1500,2200 04/03/18 [History] Aspirin EC [Ecotrin Low Dose] 81 mg PO DAILY@0800 04/15/18 [History] Polyethylene Glycol 3350 [Miralax] 17 gm PO DAILY@0800 06/07/18 [History] Melatonin 5 mg PO HS PRN 10/22/19 [History] Metoprolol Tartrate [Lopressor] 50 mg PO BID@0800,1800 10/22/19 [History] Amantadine HCl [Symmetrel] 100 mg PO BID cap 10/26/19 [Rx] Midodrine [ProAmatine] 10 mg PO AC-TID #0 tab 10/26/19 [Rx] Follow up Appointment(s)/Referral(s): Juanita Allen MD [Primary Care Provider] - 1 Week (at [facility]) Discharge Disposition: TRANSFER TO SNF/ECF
[2019-10-26 11:30] LABS: Glucose,Whole Blood 117 mg/dL (75-99)
[2019-10-26 12:30] VITALS: BP 131/61; PULSE 63; RESP 22; TEMP 98.6
== END 2019-10-26 16:07 | DRG 57 ==
LOC: EC 13:37 → 5NMEDONC 15:43
PROVIDERS: ADMIT Internal Medicine; ATTEND Internal Medicine
DX: G23.1 Progressive supranuclear ophthalmoplegia [Steele-Richardson-Olszewski] (principal); N39.0 Urinary tract infection, site not specified; E78.5 Hyperlipidemia, unspecified; E86.0 Dehydration; I10 Essential (primary) hypertension; R29.6 Repeated falls; R53.81 Other malaise; I95.1 Orthostatic hypotension; Z83.3 Family history of diabetes mellitus; Z11.59 Encounter for screening for other viral diseases; Z82.49 Family history of ischemic heart disease and other diseases of the circulatory system; Z79.899 Other long term (current) drug therapy; Z79.82 Long term (current) use of aspirin; Z98.891 History of uterine scar from previous surgery; Z98.890 Other specified postprocedural states; Z82.3 Family history of stroke
CPT/HCPCS: 36415; 70450; 80053; 81001; 82607; 82746; 83735; 83921; 85025; 85027; 87635; 93005; 99285

== ENCOUNTER → 2020-03-24 | Outpatient (CLI) | payer MEDICARE ==
[~2020-03-24] MED LIST: IODINE/POTASS IOD (LUGOLS) BOTTLE TOPICAL ONE
--- NOTE | 2020-03-25 09:54 | NM ---
EXAMINATION TYPE: NM DatScan Brain SPECT DATE OF EXAM: 03/24/2020 COMPARISON: CT brain October 22, 2019. HISTORY: Tremor. TECHNIQUE: 10 drops of Lugol's solution was administered 1 hour prior to injection as a thyroid bloc cliff agent. After the administration of 4.3 mCi I-123 Ioflupane DaTscan. Images obtained [address] injection. SPECT images of the brain were acquired with axial and coronal reconstructions. FINDINGS: Suboptimal study.The DaTSCAN demonstrates reduced uptake of tracer throughout the striata. 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 IMPRESSION: This abnormal appearance is consistent with a diagnosis of either idiopathic PD or PS.
== END | disposition home or self-care (01) ==
LOC: RADNMMAIN 10:59
PROVIDERS: ATTEND Psychiatry & Neurology Pain Medicine
DX: R94.02 Abnormal brain scan (principal); G25.0 Essential tremor
CPT/HCPCS: 78803; A9584

== ENCOUNTER 2023-04-11 13:19 | Emergency (ER) | payer MEDICARE, OTHER ==
--- NOTE | 2023-04-11 13:35 | ED ---
General Adult HPI - General Chief complaint: Fall Stated complaint: fall Time Seen by Provider: 04/11/23 13:30 Source: patient, EMS, RN notes reviewed, old records reviewed Mode of arrival: EMS Limitations: physical limitation - History of Present Illness Initial comments: This a 72-year-old female who presents emergency Department because she fell out of her wheelchair. Patient was sitting with a ride to reach for something he fell forward and hit her head. Patient states she has no neck pain no numbness or weakness but she does have a little bit of a headache. Patient at the front of her head. Patient is not in any blood thinners. Patient has no other injury except for a little contusion to the right knee but she can move her knee. Patient denies any loss of consciousness or being days. Patient denies any chest pain or upper extremity pain. Patient according to the correction also 100.2 fever and a little bit of cough and he stated that COVID was going around the correction - Related Data Home Medications Medication Instructions Recorded Confirmed Atorvastatin [Lipitor] 20 mg PO HS@2100 04/03/18 04/11/23 Carbidopa-Levodopa 25-100 mg 3 tab PO TID@0800,1400,2200 04/03/18 04/11/23 [Sinemet 25-100 mg] Aspirin EC [Ecotrin Low Dose] 81 mg PO DAILY@0800 04/15/18 04/11/23 polyethylene glycoL 3350 [Miralax] 17 gm PO DAILY@0800 06/07/18 04/11/23 Melatonin 10 mg PO HS@2100 10/22/19 04/11/23 Metoprolol Tartrate [Lopressor] 50 mg PO BID@0800,1700 10/22/19 04/11/23 Acetaminophen [Tylenol Arthritis] 650 mg PO Q4H PRN 04/11/23 04/11/23 Baclofen [Lioresal] 20 mg PO BID@0800,1700 04/11/23 04/11/23 Ipratropium-Albuterol Nebulize 3 ml INHALATION RT-Q6H 04/11/23 04/11/23 [Duoneb 0.5 mg-3 mg/3 ml Soln] Losartan Potassium [Cozaar] 100 mg PO HS@2100 04/11/23 04/11/23 Magnesium Hydroxide [Milk of 7,200 mg PO DAILY PRN 04/11/23 04/11/23 Magnesia Concentrate] Mirabegron [Myrbetriq] 25 mg PO DAILY@0800 04/11/23 04/11/23 Na Phos,M-B/Na Phos,Di-Ba [Fleet 133 ml RECTAL ONCE PRN 04/11/23 04/11/23 Adult] Ocusoft Eyelid Ceansing Pads 1 applic TOPICAL BID@0800,1700 04/11/23 04/11/23 Polyvinyl Alcohol/Povidone 1 drop BOTH EYES BID@0800,1700 04/11/23 04/11/23 [Freshkote Eye Drop] Pregabalin [Lyrica] 150 mg PO BID@0800,1700 04/11/23 04/11/23 Whole Food Multivitamins & Minerals 1 tab PO DAILY@0800 04/11/23 04/11/23 amLODIPine [Norvasc] 5 mg PO DAILY 04/11/23 04/11/23 amantadine HCL [Symmetrel] 200 mg PO BID@0800,1700 04/11/23 04/11/23 bisacodyL [Dulcolax] 10 mg RECTAL DAILY PRN 04/11/23 04/11/23 clonazePAM [KlonoPIN] 1 mg PO BID@0800,1700 04/11/23 04/11/23 guaiFENesin [guaiFENesin Oral 100 mg PO Q4H PRN 04/11/23 04/11/23 Solution] Allergies Allergy/AdvReac Type Severity Reaction Status Date / Time No Known Allergies Allergy Verified 04/11/23 17:51 Review of Systems ROS Statement: Those systems with pertinent positive or pertinent negative responses have been documented in the HPI. ROS Other: All systems not noted in ROS Statement are negative. Past Medical History Past Medical History: Hyperlipidemia, Hypertension Additional Past Medical History / Comment(s): supranuclear palsy History of Any Multi-Drug Resistant Organisms: None Reported Past Surgical History: Section, Orthopedic Surgery Additional Past Surgical History / Comment(s): rt foot/progressive supranuclear palsy Past Anesthesia/Blood Transfusion Reactions: No Reported Reaction Past Psychological History: No Psychological Hx Reported Past Alcohol Use History: None Reported Past Drug Use History: None Reported - Past Family History Father Family Medical History: CVA/TIA Sister(s) Additional Family Medical History / Comment(s): anersym Brother(s) Family Medical History: CVA/TIA Additional Family Medical History / Comment(s): The patient has 1 brother that at age 53 from a brain aneurysm and one brother living with no major medical problems. Mother Additional Family Medical History / Comment(s): Mother at age 82 with diabetes complications. Daughter(s) Additional Family Medical History / Comment(s): Patient has 6 daughters and 4 sons with no major medical problems. General Exam - General Exam Comments Initial Comments: GENERAL: Patient is well-developed and well-nourished. Patient is nontoxic and well-hyd rated and is in mild distress. ENT: Neck is soft and supple. No significant lymphadenopathy is noted. Oropharynx is clear. Moist mucous membranes. Neck has full range of motion without eliciting any pain. Patient has a small hematoma to the forehead on the left EYES: The sclera were anicteric and conjunctiva were pink and moist. Extraocular movements were intact and pupils were equal round and reactive to light. Eyelids were unremarkable. PULMONARY: Unlabored respirations. Good breath sounds bilaterally. No audible rales rhonchi or wheezing was noted. CARDIOVASCULAR: There is a regular rate and rhythm without any murmurs gallops or rubs. ABDOMEN: Soft and nontender with normal bowel sounds. SKIN: Skin is clear with no lesions or rashes and otherwise unremarkable. NEUROLOGIC: Patient is alert and oriented x3. Cranial nerves II through XII are grossly intact. Motor and sensory are also intact. Normal speech, volume and content. Symmetrical smile. MUSCULOSKELETAL: Normal extremities with adequate strength and full range of motion. Patient has a little tenderness of the medial right anterior knee. LYMPHATICS: No significant lymphadenopathy is noted PSYCHIATRIC: Normal psychiatric evaluation. Limitations: physical limitation Course Vital Signs 04/11/23 04/11/23 04/11/23 13:26 15:45 17:44 Pulse Rate 75 77 79 Respiratory 16 16 18 Rate Blood Pressure 158/81 139/82 135/84 O2 Sat by Pulse 93 L 100 96 Oximetry Medical Decision Making - Medical Decision Making EKG is interpreted by myself and it shows a sinus rhythm at 76 bpm HI interval is 210 QRS is 81 Q-T intervals 370 QTC is 418. Patient's EKG shows ST segment elevation or depression. Was pt. sent in by a medical professional or institution (HELENA Zaragoza, EM PHYSICIAN, urgent care, hospital, or correction...) When possible be specific @ -Patient was sent in by the correction Did you speak to anyone other than the patient for history (EMS, parent, family, police, friend...)? What history was obtained from this source @ -No Did you review nursing and triage notes (agree or disagree)? Why? @ -I reviewed and agree with nursing and triage notes Were old charts reviewed (outside hosp., previous admission, EMS record, old EKG, old radiological studies, urgent care reports/EKG's, correction records)? Report findings @ -No old charts were reviewed Differential Diagnosis (chest pain, altered mental status, abdominal pain women, abdominal pain men, vaginal bleeding, weakness, fever, dyspnea, syncope, headache, dizziness, GI bleed, back pain, seizure, CVA, palpatations, mental he alth, musculoskeletal)? @ -Intraparenchymal hemorrhage, intraparenchymal contusion, skull fracture, subdural, epidural, cervical fracture this is not all inclusive EKG interpreted by me (3pts min.). @ -As above X-rays interpreted by me (1pt min.). @ -Chest x-ray shows no acute abnormality patient is under inflated CT interpreted by me (1pt min.). @ -None done U/S interpreted by me (1pt. min.). @ -None done What testing was considered but not performed or refused? (CT, X-rays, U/S, labs)? Why? @ -None What meds were considered but not given or refused? Why? @ -None Did you discuss the management of the patient with other professionals (professionals i.e. HELENA Zaragoza, EM PHYSICIAN, lab, RT, psych nurse, social media strategist, final canoe inspector, teacher, ecological technical officer, pillowcase maker)? Give summary @ -No Was smoking cessation discussed for >3mins.? @ -No Was critical care preformed (if so, how long)? @ -No Were there social determinants of health that impacted care today? How? (Homelessness, low income, unemployed, alcoholism, drug addiction, transportation, low edu. Level, literacy, decrease access to med. care, long term, rehab)? @ -No Was there de-escalation of care discussed even if they declined (Discuss DNR or withdrawal of care, Hospice)? DNR status @ -No What co-morbidities impacted this encounter? (DM, HTN, Smoking, COPD, CAD, Cancer, CVA, ARF, Chemo, Hep., AIDS, mental health diagnosis, sleep apnea, morbid obesity)? @ -None Was patient admitted / discharged? Hospital course, mention meds given and route, prescriptions, significant lab abnormalities, going to OR and other pertinent info. @ -Patient's lab work came back showing the patient had coded. Patient's x-ray also showed questionable pulmonary edema so I ordered a BNP which was within normal range the patient was oxygenating just fine. Patient will return back to the correction Undiagnosed new problem with uncertain prognosis? @ -No Drug Therapy requiring intensive monitoring for toxicity (Heparin, Nitro, Insulin, Cardizem)? @ -No Were any procedures done? @ -No Diagnosis/symptom? @ -COVID Acute, or Chronic, or Acute on Chronic? @ -Acute Uncomplicated (without systemic symptoms) or Complicated (systemic symptoms)? @ -Complicated Side effects of treatment? @ -No Exacerbation, Progression, or Severe Exacerbation? @ -No Poses a threat to life or bodily function? How? (Chest pain, USA, CT, pneumonia, PE, COPD, DKA, ARF, appy, cholecystitis, CVA, Diverticulitis, Homicidal, Suicidal, threat to staff... and all critical care pts) @ -No Diagnosis/symptom? @ -Forehead contusion Acute, or Chronic, or Acute on Chronic? @ -Acute Uncomplicated (without systemic symptoms) or Complicated (systemic symptoms)? @ -Uncomplicated Side effects of treatment? @ -none Exacerbation, Progression, or Severe Exacerbation] @ -no Poses a threat to life or bodily function? @ -no - Lab Data Result diagrams: 04/11/23 15:40 04/11/23 15:40 Lab Results 04/11/23 04/11/23 04/11/23 Range/Units 13:43 15:40 15:40 WBC 8.0 (3.8-10.6) k/uL RBC 4.90 (3.80-5.40) m/uL Hgb 16.7 H (11.4-16.0) gm/dL Hct 50.0 H (34.0-46.0) % MCV 102.0 H (80.0-100.0) fL MCH 34.2 (25.0-35.0) pg MCHC 33.5 (31.0-37.0) g/dL RDW 13.3 (11.5-15.5) % Plt Count 211 (150-450) k/uL MPV 9.1 Neutrophils % 78 % Lymphocytes % 9 % Monocytes % 9 % Eosinophils % 1 % Basophils % 1 % Neutrophils # 6.3 (1.3-7.7) k/uL Lymphocytes # 0.7 L (1.0-4.8) k/uL Monocytes # 0.8 (0-1.0) k/uL Eosinophils # 0.1 (0-0.7) k/uL Basophils # 0.1 (0-0.2) k/uL Macrocytosis Slight Sodium 140 (137-145) mmol/L Potassium 5.0 (3.5-5.1) mmol/L Chloride 107 (98-107) mmol/L Carbon Dioxide 23 (22-30) mmol/L Anion Gap 10 mmol/L BUN 10 (7-17) mg/dL Creatinine 0.59 (0.52-1.04) mg/dL Est GFR (CKD-EPI)AfAm >90 (>60 ml/min/1.73 sqM) Est GFR (CKD-EPI)NonAf >90 (>60 ml/min/1.73 sqM) Glucose 95 (74-99) mg/dL Calcium 9.7 (8.4-10.2) mg/dL Total Bilirubin 0.9 (0.2-1.3) mg/dL AST 34 (14-36) U/L ALT 8 (4-34) U/L Alkaline Phosphatase 113 (38-126) U/L Troponin I (0.000-0.034) ng/mL NT-Pro-B Natriuret Pep 285 pg/mL Total Protein 8.6 H (6.3-8.2) g/dL Albumin 4.6 (3.5-5.0) g/dL Coronavirus (PCR) Detected A (Not Detectd) 04/11/23 Range/Units 15:40 WBC (3.8-10.6) k/uL RBC (3.80-5.40) m/uL Hgb (11.4-16.0) gm/dL Hct (34.0-46.0) % MCV (80.0-100.0) fL MCH (25.0-35.0) pg MCHC (31.0-37.0) g/dL RDW (11.5-15.5) % Plt Count (150-450) k/uL MPV Neutrophils % % Lymphocytes % % Monocytes % % Eosinophils % % Basophils % % Neutrophils # (1.3-7.7) k/uL Lymphocytes # (1.0-4.8) k/uL Monocytes # (0-1.0) k/uL Eosinophils # (0-0.7) k/uL Basophils # (0-0.2) k/uL Macrocytosis Sodium (137-145) mmol/L Potassium (3.5-5.1) mmol/L Chloride (98-107) mmol/L Carbon Dioxide (22-30) mmol/L Anion Gap mmol/L BUN (7-17) mg/dL Creatinine (0.52-1.04) mg/dL Est GFR (CKD-EPI)AfAm (>60 ml/min/1.73 sqM) Est GFR (CKD-EPI)NonAf (>60 ml/min/1.73 sqM) Glucose (74-99) mg/dL Calcium (8.4-10.2) mg/dL Total Bilirubin (0.2-1.3) mg/dL AST (14-36) U/L ALT (4-34) U/L Alkaline Phosphatase (38-126) U/L Troponin I <0.012 (0.000-0.034) ng/mL NT-Pro-B Natriuret Pep pg/mL Total Protein (6.3-8.2) g/dL Albumin (3.5-5.0) g/dL Coronavirus (PCR) (Not Detectd) Disposition Clinical Impression: Fall, Forehead contusion, COVID-19 Disposition: HOME SELF-CARE Condition: Good Instructions (If sedation given, give patient instructions): Fall Prevention for Older Adults (ED), COVID-19 (Coronavirus Disease 2019) (ED) Is patient prescribed a controlled substance at d/c from ED?: No Referrals: Dwight Adames MD [Primary Care Provider] - 1-2 days Time of Disposition: 18:35
--- NOTE | 2023-04-11 14:20 | CT ---
EXAMINATION TYPE: CT brain val vickers DATE OF EXAM: 04/11/2023 COMPARISON: HISTORY: fall CT DLP: 1715.7 mGycm, Automated exposure control for dose reduction was used. CONTRAST: Patient injected with mL of . CT of the brain is performed utilizing 3 mm thick sections through the posterior fossa and 3 mm thick sections through the remaining calvarium. Study is performed within 24 hours of arrival to the hospital. No abnormal hyperdensity is present to suggest an acute intracranial hemorrhage. No mass lesion is evident. Physiologic basal ganglion calcifications present. No acute infarcts are evident. Mild periventricular white matter hypodensity is present, likely in t he basis of chronic white matter ischemic changes. Ventricles and sulci are appropriate for the patient age. Soft tissue swelling is over the left frontal region. Punctate skin surface, radiopaque foreign naa s may be present. Paranasal sinuses and mastoid air cells within the [id number] are clear. IMPRESSIONS: 1. No acute intracranial process. Follow-up MRI can be performed as clinically indicated. 2. Mild chronic appearing periventricular white matter ischemic changes. CT cervical spine. COMPARISON: None CT of the cervical spine is performed in the axial plane at 2 mm thick sections. Reconstructed image s in the coronal, and sagittal plane are reviewed on the computer. No acute fractures are evident. Vertebral body alignment is normal. Posterior spinal lamellar line is intact. Prevertebral space appe ars unremarkable. Diffuse loss of disc height is through the cervical spine. Vertebral body heights are preserved. No spinal canal stenosis is evident. No neural foraminal stenosis is evident. IMPRESSION: 1. Degenerative disc changes cervical spine. 2. No acute osseous abnormality cervical spine
--- NOTE | 2023-04-11 14:32 | XR ---
EXAMINATION TYPE: XR knee complete RT DATE OF EXAM: 04/11/2023 2:25 PM INDICATION: Patient age:Female; 72 years old; Reason for study: Fall; [facility]. COMPARISON: Right knee radiograph 04/30/2018 TECHNIQUE: The Right knee(s) was examined in Frontal, lateral and oblique projections. FINDINGS: Tricompartmental joint space narrowing with sclerosis and marginal osteophytosis. Promine nt suprapatellar spurring. Small to moderate-sized suprapatellar joint effusion. No soft tissue swell ing. IMPRESSION: 1. No acute osseous pathology. 2. Moderate to severe tricompartmental osteoarthritic changes. 3. Small to moderate-sized suprapatellar joint effusion.
--- NOTE | 2023-04-11 14:59 | XR ---
EXAMINATION TYPE: XR chest 2V DATE OF EXAM: 04/11/2023 2:56 PM COMPARISON: Chest radiographs from 06/07/2018 TECHNIQUE: XR chest 2V Frontal and lateral views of the chest. CLINICAL INDICATION:Female, 72 years old with history of Difficulty breathing ; FINDINGS: Lungs/Pleura: There is no evidence of pleural effusion, focal consolidation, or pneumothorax. Pulmonary vascularity: Pulmonary vascular congestion. Heart/mediastinum: Cardiomediastinal silhouette is enlarged. Atherosclerotic calcifications are seen in the aorta. Musculoskeletal: No acute osseous pathology. IMPRESSION: Cardiomegaly and mild pulmonary vascular congestion. Correlate with BNP for congestive heart failure.
[2023-04-11 16:35] LABS: ALT 8 U/L (4-34); African American GFR (CKD) >90 (>60 ml/min/1.73 sqM); Anion Gap 10 mmol/L; Blood Urea Nitrogen 10 mg/dL (7-17); Calcium 9.7 mg/dL (8.4-10.2); Carbon Dioxide 23 mmol/L (22-30); Chloride 107 mmol/L (98-107); Glucose 95 mg/dL (74-99); Non-African American GFR(CKD) >90 (>60 ml/min/1.73 sqM); Sodium 140 mmol/L (137-145); Total Bilirubin 0.9 mg/dL (0.2-1.3)
[2023-04-11 16:43] LABS: NT-Pro-B-Type Natriuretic Pept 285 pg/mL
[2023-04-11 16:50] LABS: Basophils # (A) 0.1 k/uL (0-0.2); Basophils % (A) 1 %; Eosinophils # (A) 0.1 k/uL (0-0.7); Eosinophils % (A) 1 %; HGB 16.7 gm/dL (11.4-16.0); Lymphocytes # (A) 0.7 k/uL (1.0-4.8); Lymphocytes % (A) 9 %; MCH 34.2 pg (25.0-35.0); MCHC 33.5 g/dL (31.0-37.0); Macrocytosis Slight; Mean Platelet Volume 9.1; Monocytes # (A) 0.8 k/uL (0-1.0); Monocytes % (A) 9 %; Neutrophils # (A) 6.3 k/uL (1.3-7.7); Neutrophils % (A) 78 %; Platelet Count 211 k/uL (150-450); RDW 13.3 % (11.5-15.5)
[2023-04-11 17:09] LABS: AST 34 U/L (14-36)
[2023-04-11 17:10] LABS: Albumin 4.6 g/dL (3.5-5.0); Alkaline Phosphatase 113 U/L (38-126); Total Protein 8.6 g/dL (6.3-8.2)
[2023-04-11 17:50] VITALS: RESP 18
[2023-04-11 18:48] VITALS: BP 131/86; PULSE 78; TEMP 99
== END 2023-04-11 19:15 | disposition home or self-care (01) ==
LOC: EC 13:19
DX: U07.1 COVID-19 (principal); S00.83XA Contusion of other part of head, initial encounter; E78.5 Hyperlipidemia, unspecified; I10 Essential (primary) hypertension; Z79.82 Long term (current) use of aspirin; Z79.899 Other long term (current) drug therapy; W05.0XXA Fall from non-moving wheelchair, initial encounter
CPT/HCPCS: 36415; 70450; 71046; 72125; 80053; 83880; 84484; 85025; 87635; 93005; 99285